=== PATIENT | male | born 1955 | race Caucasian/White ===

== ENCOUNTER → 2017-09-03 13:38 | Outpatient (CLI) | payer OTHER, SELFPAY ==
--- NOTE | 2017-09-09 08:28 | LEAS ---
Arterial Study - Arterial Study Arterial Study: Record number: [id number] next Date of scan 09/03/[address] Partida History: Patient with known atherosclerosis with claudication and a history of hyperlipidemia and smoking Interpretation: Right lower extremity there is fairly adequate pulsatile flow noted from the thigh down to the calf ankle out through the digits slightly decreased at the low thigh pressure 0.81 out to the posterior tibial 0.75 dorsalis pedis 0.56. Walked on the treadmill for 1.4 mph 5% grade for 5 minutes with no complaints this did drop down at 1 minute from 0.75 down to 0.51 x 3 minutes back up to normal and maintained from there. Shows biphasic flow both vessels at the ankle Left lower extremity adequate pulsatile flow from the thigh down to the calf ankle out through the digits duplex shows biphasic flow both vessels at the ankle. Low thigh with a pressure 0.89 maintained down through posterior tibial 0.93 dorsalis pedis 0.92. After exercising as above 1 minute dropped down to 0.673 minutes back to 0.775 minutes 0.88 maintained through there. Impression: 1. Moderate arterial occlusive disease of the right leg with an GENO 0.75 and biphasic flow. Moderate drop down to 0.51 without significant symptoms. Suggestive of either her aorta ilio or femoral occlusive disease. 2. Left lower extremity mild arterial occlusive disease with biphasic flow noted at the ankle with an GENO 0.93 with a drop down to 0.7 with exercise. Further evaluation is clinically warranted.
== END ==
PROVIDERS: Family Provider Family Medicine; PCP Family Medicine; Visit Provider Surgery Vascular Surgery
DX: I70.213 Atherosclerosis of native arteries of extremities with intermittent claudication, bilateral legs (principal); F17.200 Nicotine dependence, unspecified, uncomplicated
CPT/HCPCS: 93923

== ENCOUNTER → 2017-09-26 07:25 | Outpatient (CLI) | payer OTHER, SELFPAY ==
--- NOTE | 2017-09-26 07:25 | DT_ITS ---
This patient was seen during an EMR downtime September 21, 2017 - September 28, 2017. This patient may have a combination of paper and electronic documentation or all paper documentation. All documentation is viewable within the e-chart portion of [email or web address] for each patient visit.
[2017-09-26 10:22] LABS: AST(SGOT) 21 U/L (15-37); Alanine Aminotransfer ALT/SGPT 22 U/L (16-61); Albumin, Serum 3.6 g/dL (3.2-5.0); Alkaline Phosphatase 84 U/L (45-117); Bilirubin, Direct 0.06 mg/dL (0.00-0.30); Cholesterol 156 mg/dL (200); Globulin 3.7 g/dL (2.2-4.2); High Density Lipoprotein 33 mg/dL; Protein, Total 7.3 g/dL (6.4-8.2); Triglycerides 133 mg/dL; Very Low Density Lipoprotein 27 mg/dL (5-40)
== END ==
PROVIDERS: Family Provider Family Medicine; PCP Family Medicine; Visit Provider Internal Medicine Cardiovascular Disease
DX: E78.5 Hyperlipidemia, unspecified (principal); Z79.899 Other long term (current) drug therapy
CPT/HCPCS: 36415; 80061; 80076

== ENCOUNTER 2018-06-06 09:40 | Emergency (ER) | payer OTHER, SELFPAY ==
[2018-06-06 09:40] VITALS: BP 141/68; PULSE 67; RESP 18; TEMP 36.6; O2SAT 99; BMI 22.8
--- NOTE | 2018-06-06 10:04 | ED.VISSUMM ---
- ER Visit Summary Date of Service: 06/06/18 Chief Complaint: Left eye pain History of Present Illness: The patient is a 62 M who presents with left eye pain that began yesterday. Patient states the pain kind of went away yesterday but became worse today. Patient states the pain is worse with any blinking. Patient states he feels like there is something under his upper eyelid. Patient admits to some watery drainage and discharge. Patient denies any matting or crusting. Patient admits to some blurred vision from the left eye. Patient is unsure if there is any foreign body in the eye. Physical Examination: Vital signs are stable. Patient is afebrile. Patient is in no acute distress. Pupils are equal, round, and reactive to light bilaterally. Extraocular muscles are intact. Funduscopic examination is benign. There is conjunctival injection on the left. Tetracaine and fluorescein dye was applied. There are no foreign bodies noted. There is a large corneal abrasion over the central and inferior cornea. There is no hyphema noted. Anterior chamber is clear. There is no cell or flare. The remaining physical exam is within normal limits. Emergency Department Course and Treatment: Patient was given a prescription for gentamicin ophthalmic ointment. Patient was instructed to follow-up with his primary care physician or sap pi developer in 1-2 days. Patient understood and was agreeable with the plan. All questions were answered. Disposition: Discharge home Impression: Left corneal abrasion This note was generated with [employer] dictation software. It may contain incorrect words, spelling, and punctuation that were not noted in review of the chart prior to signing ED Disposition - Plan for ED Patient: Disposition: Home or Assisted Living Diagnosis: Left corneal abrasion Instructions: ED Eye Injury Corneal Abrasion Prescriptions: Gentamicin Ophthalmic Ointment [Garamycin Ophthalmic Ointment] 1 applic LEFT EYE BID 3 Days #1 opth.tube Referrals: Santos Martinez MD [Primary Care Provider] -
[2018-06-06] MEDS: Fluorescein 1 MG STRIP 1 STRIP LEFT EYE (10:44)
[2018-06-06] MEDS: Tetracaine 0.5% Ophthalmic Bottle 1 DRP LEFT EYE (10:45)
--- NOTE | 2018-06-06 11:15 | ED.RN ---
PT UNABLE TO DO VISUAL ACUITY TEST. DID NOT BRING GLASSES WITH HIM AND PER PT, HE CAN'T SEE ANYTHING WITHOUT THEM
== END 2018-06-06 11:37 | disposition home or self-care (01) ==
PROVIDERS: Emergency Provider Emergency Medicine; Family Provider Family Medicine; PCP Family Medicine
DX: S05.02XA Injury of conjunctiva and corneal abrasion without foreign body, left eye, initial encounter (principal); Z72.0 Tobacco use; X58.XXXA Exposure to other specified factors, initial encounter; Y93.89 Activity, other specified; Y92.89 Other specified places as the place of occurrence of the external cause; Y99.8 Other external cause status
CPT/HCPCS: 99283

== ENCOUNTER → 2018-09-24 | Outpatient (CLI) | payer OTHER, SELFPAY ==
[2018-09-24 07:52] LABS: AST(SGOT) 17 U/L (15-37); Alanine Aminotransfer ALT/SGPT 21 U/L (16-61); Albumin, Serum 3.8 g/dL (3.2-5.0); Alkaline Phosphatase 103 U/L (45-117); Bilirubin, Direct 0.09 mg/dL (0.00-0.30); Cholesterol 168 mg/dL (200); Globulin 3.9 g/dL (2.2-4.2); High Density Lipoprotein 34 mg/dL; Protein, Total 7.7 g/dL (6.4-8.2); Triglycerides 156 mg/dL; Very Low Density Lipoprotein 31 mg/dL (5-40)
== END | disposition home or self-care (01) ==
LOC: LAB 07:06
PROVIDERS: Family Provider Family Medicine; PCP Family Medicine; Referring Provider Internal Medicine Cardiovascular Disease; Visit Provider Internal Medicine Cardiovascular Disease
DX: E78.5 Hyperlipidemia, unspecified (principal)
CPT/HCPCS: 36415; 80061; 80076

== ENCOUNTER → 2018-10-05 | Outpatient (CLI) | payer OTHER, SELFPAY ==
[2018-09-30 13:57] VITALS: BMI 22.3
--- NOTE | 2018-10-05 07:47 | ART_ITS ---
Reason For Study: Atheroslcerosis Procedure A bilateral lower extremity continuous wave Doppler with analog waveform analysis and ankle brachial indexes. Left Segmental Pressures Left brachial= 135mmHg. Left posterior tibial artery = 111mmHg. Left dorsalis pedis artery = 85mmHg. The left dorsalis pedis waveforms are biphasic. The left posterior tibial artery waveforms are biphasic. Right Segmental Pressures Right brachial= 134mmHg. Right posterior tibial artery = 92mmHg. Right dorsalis pedis artery = 83mmHg. The right dorsalis pedis waveforms are monophasic. The right posterior tibial artery waveforms are biphasic. Indices The right ankle brachial index by the dorsalis pedis is 0.61. The right ankle brachial index by the posterior tibial artery is 0.68. The left ankle brachial index by the dorsalis pedis is 0.63. The left ankle brachial index by the posterior tibial artery is 0.82. Interpretation Summary 1. Bilateral with moderate occlussive disease and biphasic flow with GENO 0.68 on the right and 0.82 on the left. Ordering Physician: Judd Partida Referring Physician: Santos Martinez Performed By: Hetal Del Real RVT
--- NOTE | 2018-10-05 07:47 | AAVD_ITS ---
Reason For Study: Atheroslcerosis Aorta Measurements Aorta Doppler Measurements Proximal aorta measures1.37 x1.36cm. in cross- Peak systolic flow velocities within the proximal sectional axis. aorta measure 86.4 cm/sec. Proximal aorta measures1.36cm. in longitudinal Peak systolic flow velocities within the mid aorta axis. measure 36.3 cm/sec. Mid aorta measures1.33 x 1.33cm. in cross- Peak systolic flow velocities within the distal sectional axis. aorta measure 26.7 cm/sec. Mid aorta measures1.39cm. in longitudinal axis. Distal aorta measures1.74 x 2.05cm. in cross- sectional axis. Distal aorta measures1.62cm. in longitudinal axis. Left Iliac Artery Left iliac artery measures 0.64 x 0.66 cm. in the cross-sectional axis. Left iliac artery measures 0.65 cm. in the longitudinal axis. Peak systolic velocity in the left iliac artery measures 51.2 cm/sec. Right Iliac Artery Right iliac artery measures 0.54 x 0.54 cm. in the cross-sectional axis. Right iliac artery measures 0.55 cm. in the longitudinal axis. Peak systolic velocity in the right iliac artery measures 67.7 cm/sec. Procedure Aorta IVC Iliac vasculature or bypass grafts [id number]. Exam performed in department. Interpretation Summary 1. no aortoiliac aneurysm or stenosis. Ordering Physician: Judd Partida Referring Physician: Santos Martinez Performed By: Hetal Del Real RVT
== END | disposition home or self-care (01) ==
LOC: CVS 07:46
PROVIDERS: Family Provider Family Medicine; PCP Family Medicine; Referring Provider Surgery Vascular Surgery; Visit Provider Surgery Vascular Surgery
DX: I70.213 Atherosclerosis of native arteries of extremities with intermittent claudication, bilateral legs (principal); I65.23 Occlusion and stenosis of bilateral carotid arteries; F17.200 Nicotine dependence, unspecified, uncomplicated; R09.89 Other specified symptoms and signs involving the circulatory and respiratory systems; I25.10 Atherosclerotic heart disease of native coronary artery without angina pectoris; I25.2 Old myocardial infarction
CPT/HCPCS: 93922; 93978

== ENCOUNTER → 2019-09-24 | Outpatient (CLI) | payer OTHER, SELFPAY ==
[2018-09-30 13:57] VITALS: BMI 22.3
[2019-09-24 08:17] LABS: AST(SGOT) 19 U/L (15-37); Alanine Aminotransfer ALT/SGPT 21 U/L (16-61); Albumin, Serum 3.6 g/dL (3.2-5.0); Alkaline Phosphatase 89 U/L (45-117); Cholesterol 150 mg/dL (200); Globulin 3.6 g/dL (2.2-4.2); High Density Lipoprotein 35 mg/dL; Protein, Total 7.2 g/dL (6.4-8.2); Triglycerides 76 mg/dL; Very Low Density Lipoprotein 15 mg/dL (5-40)
== END | disposition home or self-care (01) ==
PROVIDERS: PCP Family Medicine; Referring Provider Internal Medicine Cardiovascular Disease; Visit Provider Internal Medicine Cardiovascular Disease
DX: E78.5 Hyperlipidemia, unspecified (principal)
CPT/HCPCS: 36415; 80061; 80076

== ENCOUNTER → 2019-11-08 | Outpatient (CLI) | payer OTHER, SELFPAY ==
[2019-09-30 14:14] VITALS: BMI 22.1
--- NOTE | 2019-11-08 07:57 | ART_ITS ---
Reason For Study: Atherosclerosis Procedure A bilateral lower extremity continuous wave Doppler with analog waveform analysis and ankle brachial indexes. Left Segmental Pressures Left brachial= 135mmHg. Left posterior tibial artery = 126mmHg. Left dorsalis pedis artery = 107mmHg. The left dorsalis pedis waveforms are biphasic. The left posterior tibial artery waveforms are biphasic. Right Segmental Pressures Right brachial= 130mmHg. Right posterior tibial artery = 110mmHg. Right dorsalis pedis artery = 83mmHg. The right dorsalis pedis waveforms are biphasic. The right posterior tibial artery waveforms are biphasic. Indices The right ankle brachial index by the dorsalis pedis is 0.81. The right ankle brachial index by the posterior tibial artery is 0.61. The left ankle brachial index by the dorsalis pedis is 0.93. The left ankle brachial index by the posterior tibial artery is 0.79. Interpretation Summary Right leg biphasic and karen 0.81. Left leg triphasic and karen 0.93. Ordering Physician: Judd Partida Referring Physician: Santos Martinez Performed By: Hetal Del Real RVT and Student
--- NOTE | 2019-11-08 07:58 | AAVD_ITS ---
Reason For Study: Atherosclerosis Aorta Measurements Aorta Doppler Measurements Proximal aorta measures1.37 x 1.35cm. in cross- Peak systolic flow velocities within the proximal sectional axis. aorta measure 36 cm/sec. Proximal aorta measures1.35cm. in longitudinal Peak systolic flow velocities within the mid aorta axis. measure 34.6 cm/sec. Mid aorta measures1.72 x 1.79cm. in cross- Peak systolic flow velocities within the distal sectional axis. aorta measure 52 cm/sec. Mid aorta measures1.79cm. in longitudinal axis. Distal aorta measures1.00 x 1.01cm. in cross- sectional axis. Distal aorta measures1.04cm. in longitudinal axis. Left Iliac Artery Left iliac artery measures 0.56 x 0.54 cm. in the cross-sectional axis. Left iliac artery measures 0.57 cm. in the longitudinal axis. Peak systolic velocity in the left iliac artery measures 75.7 cm/sec. Right Iliac Artery Right iliac artery measures 0.63 x 0.61 cm. in the cross-sectional axis. Right iliac artery measures 0.62 cm. in the longitudinal axis. Peak systolic velocity in the right iliac artery measures 91.6 cm/sec. Procedure Aorta IVC Iliac vasculature or bypass grafts [id number]. Exam performed in department. Interpretation Summary No aortoiliac aneurysm or stenosis. Ordering Physician: Judd Partida Referring Physician: Santos Martinez Performed By: Hetal Del Real RVT
== END | disposition home or self-care (01) ==
PROVIDERS: PCP Family Medicine; Referring Provider Surgery Vascular Surgery; Visit Provider Surgery Vascular Surgery
DX: I70.213 Atherosclerosis of native arteries of extremities with intermittent claudication, bilateral legs (principal); F17.200 Nicotine dependence, unspecified, uncomplicated
CPT/HCPCS: 93922; 93978

== ENCOUNTER → 2020-07-10 06:54 | Outpatient (CLI) | payer OTHER, SELFPAY ==
[2020-06-29 13:18] VITALS: BMI 22.4
--- NOTE | 2020-07-10 17:05 | STRESSREP ---
Stress Test Report Exercise myocardial perfusion stress test. 65-year-old man with a history of coronary artery disease status post previous inferior infarct. Medications aspirin fish oil metoprolol Plavix. Stress protocol: Resting EKG demonstrates normal sinus rhythm with a rate of 68 bpm normal intervals are noted resting blood pressure is 140/78 mmHg. Occasional premature ventricular complexes noted. The patient exercised according to regular Gildardo protocol for total duration of 5 minutes and 45 seconds. Patient completed 2 minutes and 45 seconds into stage II of the Gildardo protocol the maximum heart rate attained was 137 bpm which was 88% of max impacted heart rate the maximum workload was 7 metabolic equivalents. At rest there were no ST or T wave changes noted to suggest ischemia and at peak exercise no ST or T wave changes were noted to suggest ischemia. No clinical angina was noted the test was terminated due to leg discomfort. The peak blood pressure was 168/70 mmHg. The rate-pressure product was 21,700. Myocardial perfusion protocol. 11.3 mCi of technetium 99m sestamibi was injected at rest. The patient exercised according to the regular Gildardo protocol for 5 minutes and 45 seconds and at peak exercise 35.0 mCi of technetium 99m sestamibi was injected stress images were obtained stress and rest images were reconstructed and compared in the short axis vertical long and horizontal long axis. Gated images were also obtained. Perfusion SPECT analysis: Review of the stress images demonstrate a mildly dilated cardiac silhouette. The septum and anterior wall appear to be well perfused. There is a large defect involving the mid inferior wall extending to the base and the inferolateral segment. The resting images demonstrate minimal improvement suggestive of mild naomi-infarct ischemia. The rest of the royal appear to be normally perfused. A previous infarct is noted as above. Gated SPECT analysis: The gated ejection fraction demonstrates reduced ejection fraction of 39% with severely hypokinetic inferior and inferolateral wall. Conclusion: Exercise myocardial perfusion stress test demonstrating evidence of previous inferior and inferolateral infarct. Minimal naomi-infarct ischemia noted. Good functional aerobic capacity. Ischemic cardiomyopathy present.
== END ==
PROVIDERS: PCP Family Medicine; Visit Provider Nurse Practitioner Family
DX: I25.10 Atherosclerotic heart disease of native coronary artery without angina pectoris (principal); R06.02 Shortness of breath; I73.9 Peripheral vascular disease, unspecified; E78.00 Pure hypercholesterolemia, unspecified; Z95.5 Presence of coronary angioplasty implant and graft
CPT/HCPCS: 78452; 93017; A9500; A4216

== ENCOUNTER → 2020-10-11 06:58 | Outpatient (CLI) | payer OTHER, SELFPAY ==
[2020-06-29 13:18] VITALS: BMI 22.4
[2020-10-11 07:47] LABS: AST(SGOT) 20 U/L (15-37); Alanine Aminotransfer ALT/SGPT 22 U/L (16-61); Albumin, Serum 3.7 g/dL (3.2-5.0); Alkaline Phosphatase 111 U/L (45-117); Bilirubin, Direct 0.11 mg/dL (0.00-0.30); Cholesterol 184 mg/dL (200); Globulin 3.7 g/dL (2.2-4.2); High Density Lipoprotein 36 mg/dL; Protein, Total 7.4 g/dL (6.4-8.2); Triglycerides 125 mg/dL; Very Low Density Lipoprotein 25 mg/dL (5-40)
== END ==
PROVIDERS: PCP Family Medicine; Referring Provider Internal Medicine Cardiovascular Disease; Visit Provider Internal Medicine Cardiovascular Disease
DX: E78.00 Pure hypercholesterolemia, unspecified (principal); E78.5 Hyperlipidemia, unspecified
CPT/HCPCS: 36415; 80061; 80076

== ENCOUNTER 2020-11-29 08:24 | Day surgery (SDC) | payer OTHER, SELFPAY ==
[2020-10-29 13:15] VITALS: BMI 23.1
--- NOTE | 2020-11-28 10:11 | EKG12_ITS ---
Test Reason : PRE OP Blood Pressure : / mmHG Vent. Rate : 064 BPM Atrial Rate : 064 BPM P-R Int : 160 ms QRS Dur : 102 ms QT Int : 418 ms P-R-T Axes : 071 068 054 degrees QTc Int : 431 ms Normal sinus rhythm Normal ECG Confirmed by PHOENIX DAILEY, PHILLY ([id number]), movie editor KERRY WEBBER ([id number]) on 11/29/2020 10:42:25 AM Referred By: Cedrick Singh Confirmed By:PHILLY GARIBAY MD
[2020-11-28 11:25] LABS: Hematocrit 46.7 % (40-54); Hemoglobin 15.8 g/dL (13.0-16.5); Mean Corp Hgb Conc 33.8 g/dL (32-36); Mean Corpuscular Hgb 30.7 pg (27.0-32.0); Mean Corpuscular Volume 90.7 fL (80-94); Mean Platelet Vol. 9.9 fl (6.2-12.0); Platelet Count 299 K/mm3 (150-450); RBC Distribution Width CV 13.2 % (11.6-14.6); RBC Distribution Width SD 44.1 fl (35.1-43.9); Red Blood Count 5.15 M/mm3 (4.6-6.2); White Blood Count 10.2 K/mm3 (4.4-11.0)
[2020-11-28 12:05] LABS: Anion Gap 4 (5-15); BUN 12 mg/dL (7-18); Calcium,Total 9.1 mg/dL (8.5-10.1); Chloride 107 mmol/L (98-107); Creatinine, Serum 0.92 mg/dL (0.70-1.30); EST Glomerular Filtration Rate 87 mL/min (>60); Est Glom Filt Rate - Afr Amer 106 mL/min (>60); Estimated Creatinine Clearance 76.41 ml/min; Glucose 73 mg/dL (74-106); Potassium 3.8 mmol/L (3.5-5.1); Sodium Level 138 mmol/L (136-145)
[2020-11-29] VITALS (9 sets, daily range): BP systolic 102–161; BP diastolic 51–73; PULSE 49–58; RESP 16; TEMP 36.1–36.7; O2SAT 96–99; BMI 21.6
[2020-11-29] MEDS: Lactated Ringers 1,000 ML 100 ML IV (09:05)
--- NOTE | 2020-11-29 09:19 | PCM.HP.BLA ---
History and Physical Date of Admission: 11/29/20 Intake Vital Signs 10/29/20 13:05 10/29/20 13:15 Height 5 ft 8.5 in Weight: 154 lb BMI 22.4 23.1 BP 146/72 H Blood Pressure Location Rt brachial Position Sitting Respiration 18 Intake Visit Reasons: Right Inguinal Hernia seen 2017 Chief Complaint: [facility] Bag Liner Required: No Is patient in pain?: Yes (right groin) Allergies atorvastatin [From Lipitor] Adverse Reaction (Severe, Verified 10/29/20 13:17) mylagias pravastatin [From Pravachol] Adverse Reaction (Severe, Verified 10/29/20 13:17) mylagias Medications aspirin 81 mg tablet,delayed release 81 mg PO QDAY 04/07/17 [History Confirmed 10/29/20] cilostazol 100 mg tablet 100 mg PO BID #180 tab 09/29/17 [Rx Confirmed 10/29/20] diazepam 5 mg tablet 5 mg PO BID-TID PRN 11/17/17 [History Confirmed 10/29/20] omega 0-qql-did-fish oil 1,000 mg (120 mg-180 mg) capsule cap PO 11/17/17 [History Confirmed 10/29/20] erythromycin 1 applic LEFT EYE TID #1 tube 06/06/18 [Rx Confirmed 10/29/20] cetirizine 10 mg tablet 10 mg PO DAILY 09/30/18 [History Confirmed 10/29/20] multivitamin 1 tab PO DAILY 09/30/18 [History Confirmed 10/29/20] clopidogrel 75 mg tablet 75 mg PO DAILY 90 Days #90 tab 09/30/19 [Rx Confirmed 10/29/20] psyllium husk 0.4 gram capsule 1.2 g PO DAILY cap 09/30/19 [History Confirmed 10/29/20] metoprolol succinate 25 mg tablet,extended release 24 hr 25 mg PO QDAY #90 tab 09/24/20 [Rx Confirmed 10/29/20] [facility] Medical History (Updated 10/29/20 @ 14:[address] Cedrick Singh MD) Atherosclerosis of coronary artery of [place] heart without angina pectoris Atherosclerosis of coronary artery without angina pectoris Carotid artery disease Hepatitis A Hyperlipidemia 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 infarction PVD (peripheral vascular disease) with claudication Surgical History H/O shoulder surgery History of appendectomy History of coronary artery stent placement (05/14/06) History of nasal polypectomy Social History Smoking Status: Current every day smoker alcohol intake: current substance use type: does not use caffeine: Yes Type: carbonated beverages Number of servings: 2 what type of physical activity do you participate in: none HPI HPI HPI: LASHANDA DEL CASTILLO, is a 65 M who presents to the office today for right inguinal hernia. The patient notes that he has been having right inguinal hernia for at least 3 years. Patient reports that the bulging is getting worse and he is unable to push it back at this point. He does not note any nausea or vomiting. The pain is only in the right groin there is no pain in the left groin. There is no radiation of pain. ROS General General: No weight change, appetite, fatigue, colon cancer, breast cancer or weakness HEENT HEENT: Yes eye injury and eye surgery; No difficulty swallowing, swollen glands or hoarseness Endo Endocrine: No thyroid disease, diabetes mellitus, thyroid cancer, Hair loss, heat intolerance or cold intolerance Skin Skin: Yes changing moles; No rash Breast Breast: No left breast lump, right breast lump, nipple discharge, breast pain, abnormal mammogram, abnormal US or breast enlargement Musc Musculoskeletal: Yes back problems; No arthritis, rheumatoid arthritis, gout or joint pain Cardio Cardiovascular: Yes heart disease, heart attack and heart stent; No murmur, pacemaker, atrial fibrillation, high blood pressure, palpitations, shortness of breat with exertion or chest pain Psych Psychiatric: Yes anxiety; No depression or hearing voices Resp Respiratory: No shortness of breath, No sleep apnea, Yes cough, No COPD, No asthma, No emphysema and No wheezing Gastro Gastrointestinal: No abdominal pain, No nausea or vomiting, No diarrhea, No constipation, No blood in stool, No acid reflux, Yes hemorrhoids, No ulcers, No gallbladder problem and No black,tarry stools José Miguel Hematologic: Yes blood thinners, No blood disorders, No bleeding, No anemia and No blood clots Neuro Neurologic: No system reviewed and no additional complaints, except as documented, No as per HPI, No abnormal gait, No abnormal hearing, No abnormal movements, No abnormal speech, No behavioral changes, No burning sensations, No confusion, No convulsions, No disequilibrium, No dizziness, No localized weakness, No frequent falls, No headache(s), No lack of coordination, No loss of vision, No memory loss, No numbness, No other visual disturbances, No radicular pain, No restless legs, No sensory deficit, No syncope, No tingling, No tremor(s), No weakness and No other Exam Const General: cooperative Orientation: alert and oriented x3 [facility] Head: normal to inspection Neck Neck: normal visual inspection and full ROM Chest Chest palpation & inspection: normal inspection of the chest Resp Effort & Inspection: normal respiratory effort Auscultation: clear to auscultation bilaterally Cardio Rate: regular rate Rhythm: regular rhythm GI Inspection: non-distended Palpation: soft, hernia indirect inguinal on the right and nontender Skin General: no rashes or lesions noted Neuro General: patient alert and patient oriented x3 Extrem General: full ROM Psych Appearance: grossly normal Mental Status: mental status grossly normal Assessment and Plan Assessment and Plan (1) Right inguinal hernia: Status: Acute Plan - Dr. Cedrick Singh MD: The patient has a right inguinal hernia. The patient says that it is interfering with his daily life and causing pain especially with lifting and he would like it repaired. I discussed laparoscopic robotic assisted right inguinal hernia repair with mesh. I discussed the risks including but not limited to bleeding, infection, injury to underlying organs such as the bowel, bladder, spermatic cord or ureter. Patient understands the risks and is willing to proceed. I will get clearance for surgery from Dr. Stone and clearance to stop his blood thinners for 5 days prior to surgery. Patient says he recently underwent a stress test which was normal. Cedrick Singh MD Pager: [facility] [address] [place] [address], [address] [place] [address] Office: I have re-examined the patient. There are no clinical changes since date of exam.
[2020-11-29] MEDS: Ipratropium/Albuterol Sulfate 3 ML AMPUL.NEB INHALATION (09:21)
[2020-11-29] MEDS: Cefazolin 2 GM in 0.9% Normal Saline 100 ML IV (09:41)
[2020-11-29] MEDS: Bupivacaine Mpf 0.5% 30 ML VIAL (10:35)
--- NOTE | 2020-11-29 10:54 | EX.PCM.DISCH ---
Discharge Instructions Procedure Hernia Diet Discharge Diet: Light diet - advance as tolerated Activity Discharge Activity: May Not Drive (for 2-3 days or while taking narcotic pain meds.) and May Shower (with the bandage in place 1-2 days after surgery.) Lifting Restrictions: 20 pounds for 4 weeks. Additional Activity Instructions:: Climbing stairs is fine, walking is encouraged. Sitting in bed may be uncomfortable. Sitting up using your lateral muscles (sitting up sideways) is usually more comfortable. Do not drive, work heavy equipment of sign legal documents for 24 hours. If your hernia repair was an ingunial repair, you may have scrotal swelling, an ice pack and/or athletic support can provide more comfort. Pain medications may cause nausea, you should typically eat light foods as you take your pain medications. Pain medications may also cause constipation. If you have difficulty with this, discuss with your doctor. Dressing / Incision Call your doctor if your incision/area has: Continuous Slow Oozing, Sudden Increased Bleeding, Increased Pain/ Swelling, Increased Redness and Foul Smelling Discharge Call your doctor if you observe: Fever of 101 or Higher Suture Line Care: Avoid Pulling/Pushing and Avoid Pinching/Bending Cleanse incision/area with: Soap & Water Follow Up Care Please Follow Up With: Cedrick Singh MD When: Please call to schedule 2 week follow up appointment. [phone] Test Results: Test results from this visit will be discussed in further detail at your follow-up appointment, if applicable. Discharge Plan Admission Attending Provider: Cedrick Singh Primary Care Provider: Santos Martinez Instructions Additional Instructions / Restrictions: Resume your blood thinners tomorrow. Discharge Orders/Prescriptions Prescriptions: New oxycodone-acetaminophen [Percocet] 5-325 mg tablet 1 tab PO Q4H PRN (Reason: pain) 5 Days Qty: 10 RF: 0 No Action aspirin [Adult Aspirin Regimen] 81 mg tablet,delayed release (DR/EC) 81 mg PO QDAY RF: 0 cilostazol 100 mg tablet 100 mg PO BID Qty: 180 RF: 3 multivitamin tablet 1 tab PO DAILY RF: 0 cetirizine [Zyrtec] 10 mg tablet 10 mg PO DAILY RF: 0 diazepam [Valium] 5 mg tablet 5 mg PO BID-TID PRN (Reason: Anxiety) RF: 0 omega 6-dcw-ulh-fish oil [Fish Oil] 1,000 mg (120 mg-180 mg) capsule 1 cap PO DAILY RF: 0 psyllium husk [Daily Fiber] 0.4 gram capsule 1.2 g PO DAILY RF: 0 clopidogrel 75 mg tablet 75 mg PO DAILY 90 Days Qty: 90 RF: 4 nitroglycerin 3 mg Tablet Extended Release 4 mg BUCCAL PRN PRN (Reason: Chest Pain) RF: 0 metoprolol succinate 25 mg tablet extended release 24 hr 25 mg PO QDAY Qty: 90 RF: 3 Referrals / Follow Up: Santos Martinez MD [Primary Care Provider] - Disposition Disposition (needs filled in before D/C Order can be placed): Home, Self Care
--- NOTE | 2020-11-29 10:59 | OP.PCM_ITS ---
Problems Associated Problem List Diagnoses (1) Right inguinal hernia: Report of Operation Date of Procedure: 11/29/20 Pre-Operative Diagnosis: Right inguinal hernia Post-Operative Diagnosis: Same Surgery/Procedure Performed:: Robotic assisted laparoscopic right inguinal hernia repair with mesh Description of Procedure: Patient was brought back to the operating room and general anesthesia was used. Abdomen was prepped and draped in usual sterile fashion. Midline incision was made superior the umbilicus and the fascia was elevated and a Veress needle was placed into the abdomen and a drop test was performed. The abdomen was insufflated to 15 mmHg and the needle was removed. Camera port was placed into the abdomen. The camera was placed into the abdomen and it was inspected and there were no injuries from entry. Patient was placed in Trendelenburg position and had a right inguinal hernia. Normal left groin. Under direct visualization a right lower quadrant and left lower quadrant 8 mm port were placed and the robot was docked. The adhesions from his prior appendectomy were taken down with electrocautery scissors. Next an incision in the right lower quadrant peritoneum was performed using electrocautery scissors and dissection was carried inferiorly until the hernia sac was dissected free circumferentially and reduced. Once there was adequate space a ProGrip mesh was unfolded in the right groin and placed over the hernia defect. The peritoneum was then reapproximated using a running 3-0V lock suture. The peritoneum completely cover the mesh at the end of the procedure. The robot was undocked and the air was locked desufflate from the abdomen and the ports were removed. The skin incisions were injected with local anesthetic and closed with interr upted 4-0 Monocryl sutures. Steri-Strips and bandages were applied. Scrotum was checked at the end of procedure and contain both testicles. patient was taken to PACU in stable condition. Grafts/Implants Used: ProGrip mesh Admit VTE Documentation VTE Mechan Device Prophylaxis: SCD's
--- NOTE | 2020-11-29 11:02 | EKG12_ITS ---
Test Reason : POST OP Blood Pressure : / mmHG Vent. Rate : 054 BPM Atrial Rate : 054 BPM P-R Int : 168 ms QRS Dur : 106 ms QT Int : 470 ms P-R-T Axes : 076 057 064 degrees QTc Int : 445 ms Sinus bradycardia Low voltage QRS Confirmed by PHOENIX DAILEY, PHILLY ([id number]), photo editor KERRY WEBBER ([id number]) on 12/05/2020 11:05:26 AM Referred By: Cedrick Singh Confirmed By:PHILLY GARIBAY MD
[2020-11-29 12:18] LABS: Troponin-I HS 5.9 pg/mL (3.0-78.5)
[2020-11-29 15:56] LABS: Troponin-I HS 7.1 pg/mL (3.0-78.5)
== END 2020-11-29 16:16 | disposition home or self-care (01) ==
LOC: SDC 08:24 → AC 08:25
PROVIDERS: Anesthesiology; PCP Family Medicine; Referring Provider Surgery; Visit Provider Surgery
PROC: (CPT 49650; principal; 2020-11-29 09:45)
DX: K40.90 Unilateral inguinal hernia, without obstruction or gangrene, not specified as recurrent (principal); I25.10 Atherosclerotic heart disease of native coronary artery without angina pectoris; E78.5 Hyperlipidemia, unspecified; I73.9 Peripheral vascular disease, unspecified; F17.200 Nicotine dependence, unspecified, uncomplicated; J44.9 Chronic obstructive pulmonary disease, unspecified; I10 Essential (primary) hypertension; I25.2 Old myocardial infarction; Z79.899 Other long term (current) drug therapy; Z95.5 Presence of coronary angioplasty implant and graft
CPT/HCPCS: 00840; 49650; 36415; 80048; 84484; 85027; 93005; J7120; J2405

== ENCOUNTER → 2021-04-10 08:37 | Outpatient (CLI) | payer OTHER, SELFPAY ==
--- NOTE | 2021-04-10 08:42 | AAVD_ITS ---
Reason For Study: Atherosclerosis Aorta Measurements Aorta Doppler Measurements Proximal aorta measures1.45 x 1.40cm. in cross- Peak systolic flow velocities within the proximal sectional axis. aorta measure 67.7 cm/sec. Proximal aorta measures1.42cm. in longitudinal Peak systolic flow velocities within the mid aorta axis. measure 31.9 cm/sec. Mid aorta measures1.33 x 1.30cm. in cross- Peak systolic flow velocities within the distal sectional axis. aorta measure 22.3 cm/sec. Mid aorta measures1.31cm. in longitudinal axis. Distal aorta measures1.54 x 1.54cm. in cross- sectional axis. Distal aorta measures1.55cm. in longitudinal axis. Left Iliac Artery Left iliac artery measures 0.56 x 0.54 cm. in the cross-sectional axis. Left iliac artery measures 0.55 cm. in the longitudinal axis. Peak systolic velocity in the left iliac artery measures 86.9 cm/sec. Right Iliac Artery Right iliac artery measures 0.54 x 0.54 cm. in the cross-sectional axis. Right iliac artery measures 0.56 cm. in the longitudinal axis. Peak systolic velocity in the right iliac artery measures 114.3 cm/sec. Procedure Aorta IVC Iliac vasculature or bypass grafts [id number]. Exam performed in department. VL/Abd Aortic/IVC Duplex scan Interpretation Summary No evidence of aortic iliac aneurysm or stenosis. Ordering Physician: Judd Partida Referring Physician: Santos Martinez Performed By: Hetal Del Real RVT
--- NOTE | 2021-04-10 08:42 | ART_ITS ---
Reason For Study: Atherosclerosis Procedure A bilateral lower extremity continuous wave Doppler with analog waveform analysis and ankle brachial indexes. Left Segmental Pressures Left brachial= 132mmHg. Left posterior tibial artery = 116mmHg. Left dorsalis pedis artery = 109mmHg. The left dorsalis pedis waveforms are biphasic. The left posterior tibial artery waveforms are biphasic. Right Segmental Pressures Right brachial= 129mmHg. Right posterior tibial artery = 109mmHg. Right dorsalis pedis artery = 101mmHg. The right dorsalis pedis waveforms are biphasic. The right posterior tibial artery waveforms are biphasic. Indices The right ankle brachial index by the dorsalis pedis is 0.77. The right ankle brachial index by the posterior tibial artery is 0.83. The left ankle brachial index by the dorsalis pedis is 0.83. The left ankle brachial index by the posterior tibial artery is 0.88. VL/Ankle Brachial Index Interpretation Summary Bilateral mild occlusive disease with an ABIs 0.83 and 0.88. Biphasic flow note d. Ordering Physician: Judd Partida Referring Physician: Santos Martinez Performed By: Hetal Del Real RVT
== END ==
PROVIDERS: PCP Family Medicine; Referring Provider Surgery Vascular Surgery; Visit Provider Surgery Vascular Surgery
DX: I70.213 Atherosclerosis of native arteries of extremities with intermittent claudication, bilateral legs (principal); F17.200 Nicotine dependence, unspecified, uncomplicated
CPT/HCPCS: 93922; 93978

== ENCOUNTER → 2021-12-06 | Outpatient (CLI) | payer OTHER, SELFPAY ==
[2021-12-06 07:25] LABS: AST(SGOT) 13 U/L (15-37); Alanine Aminotransfer ALT/SGPT 16 U/L (16-61); Albumin, Serum 3.6 g/dL (3.2-5.0); Alkaline Phosphatase 99 U/L (45-117); Bilirubin, Direct 0.06 mg/dL (0.00-0.30); Cholesterol 146 mg/dL (200); Globulin 3.9 g/dL (2.2-4.2); High Density Lipoprotein 38 mg/dL; Protein, Total 7.5 g/dL (6.4-8.2); Triglycerides 102 mg/dL; Very Low Density Lipoprotein 20 mg/dL (5-40)
== END | disposition home or self-care (01) ==
PROVIDERS: PCP Family Medicine; Referring Provider Nurse Practitioner Family; Visit Provider Nurse Practitioner Family
DX: E78.5 Hyperlipidemia, unspecified (principal)
CPT/HCPCS: 36415; 80061; 80076

== ENCOUNTER → 2021-12-09 | Outpatient (CLI) | payer OTHER, SELFPAY ==
[2021-12-09 18:18] LABS: PSA,Total - Annual Screen 2.05 ng/mL (0.00-4.00)
== END | disposition home or self-care (01) ==
LOC: MFPLAB 15:28
PROVIDERS: PCP Family Medicine; Visit Provider Family Medicine
DX: Z12.5 Encounter for screening for malignant neoplasm of prostate (principal)
CPT/HCPCS: 36415; 84153; G0103

== ENCOUNTER → 2021-12-12 | Outpatient (CLI) | payer OTHER, SELFPAY ==
--- NOTE | 2021-12-12 11:49 | RAD_ITS ---
STUDY: X-RAY CHEST REASON FOR EXAM: Male, 66 years old. Fever and cough TECHNIQUE: PA and lateral views of the chest. COMPARISON: None. FINDINGS: Lungs are mildly hyperexpanded without a superimposed acute pulmonary process. There is no demonstrated pleural abnormality. Normal size heart. Normal mediastinum and stefany. Normal visualized pulmonary arteries. Normal visualized aortic arch and descending thoracic aorta. Normal visualized thoracic spine. Normal visualized ribs, clavicles, and shoulders. There is no demonstrated abnormality of the visualized soft tissue structures of the upper abdomen. RAD/Chest PA and Lateral IMPRESSION: Mildly hyperexpanded lungs without a superimposed acute pulmonary process Electronically Signed: Sergey Velazquez MD at 9:35 EDT ,
== END | disposition home or self-care (01) ==
LOC: MTRAD 11:48
PROVIDERS: PCP Family Medicine; Referring Provider Family Medicine; Visit Provider Family Medicine
DX: J18.9 Pneumonia, unspecified organism (principal)
CPT/HCPCS: 71046

== ENCOUNTER → 2022-10-09 | Outpatient (CLI) | payer OTHER, SELFPAY ==
[2022-10-09 07:42] LABS: AST(SGOT) 16 U/L (15-37); Alanine Aminotransfer ALT/SGPT 18 U/L (16-61); Albumin, Serum 3.8 g/dL (3.2-5.0); Alkaline Phosphatase 106 U/L (45-117); Bilirubin, Direct 0.08 mg/dL (0.00-0.30); Cholesterol 167 mg/dL (200); Globulin 3.9 g/dL (2.2-4.2); High Density Lipoprotein 36 mg/dL; Protein, Total 7.7 g/dL (6.4-8.2); Triglycerides 146 mg/dL; Very Low Density Lipoprotein 29 mg/dL (5-40)
== END | disposition home or self-care (01) ==
LOC: LAB 06:59
PROVIDERS: PCP Family Medicine; Referring Provider Internal Medicine Cardiovascular Disease; Visit Provider Internal Medicine Cardiovascular Disease
DX: E78.00 Pure hypercholesterolemia, unspecified (principal)
CPT/HCPCS: 36415; 80061; 80076

== ENCOUNTER → 2023-02-10 | Outpatient (CLI) | payer OTHER, SELFPAY ==
--- NOTE | 2023-02-10 12:44 | CT_ITS ---
STUDY: LOW DOSE CT LUNG CANCER SCREENING REASON FOR EXAM: Male, 67 years old. 1 ppd smoker x 48 years. RADIATION DOSAGE (If Supplied By Facility): CTDIvol = ( 1.94 ) mGy, DLP = ( 72.32 ) mGycm TECHNIQUE: No contrast was administered. Low dose technique was utilized (average mAS-38 and kVp 120). 1.25 mm axial source images with a slice interval of 1.25-mm were reconstructed in lung windows. 2.5 mm axial source images with a slice interval of 2.5-mm were reconstructed in lung windows. 5.0 mm axial source images with a slice interval of 5.0-mm were reconstructed in soft tissue windows. COMPARISON: None. NODULES: Lung windows show underlying emphysema with a partially calcified 1cm calcified granuloma in the left lung base. No organized infiltrate, effusion, or suspicious noncalcified mass or nodule. Limited soft tissue windows show a normal-appearing thyroid gland. There are scattered subcentimeter in short axis dimension axillary, mediastinal, and perihilar lymph nodes. The thoracic aorta tapers normally. There are calcified coronary vessels. Bony structures show degenerative change. Limited cuts through the upper abdomen do not show a suspicious abnormality. CT/Low Dose CT Lung Screening IMPRESSION: Lung-RADS category 2 - Continue annual screening with LDCT in 12 months. IMPORTANT NOTES FOR USE: ACR Lung-RADS Version 1.1 Assessment Categories Release Date: 2018 Category: Coded 0-4 bases on nodule(s) with highest degree of suspicion. Negative screen is defined as categories 1 and 2; a positive screen is defined as categories 3 and 4. Category 3 and 4A nodules that are unchanged on interval CT should be coded as category 2, and individuals returned to screening in 12 months. Category 4X: Category 3 or 4 nodules with additional imaging findings that increase the suspicion of lung cancer, such as spiculation, GGN that doubles in size in 1 year, enlarged lymph notes, etc. Category Modifiers: S (significant finding unrelated to lung cancer) Electronically Signed: Sergey Velazquez MD at 15:24 EDT ,
== END | disposition home or self-care (01) ==
LOC: CT 12:44
PROVIDERS: PCP Family Medicine; Referring Provider Internal Medicine Pulmonary Disease; Visit Provider Internal Medicine Pulmonary Disease
DX: Z87.891 Personal history of nicotine dependence (principal)
CPT/HCPCS: 71271

== ENCOUNTER → 2023-04-21 | Outpatient (CLI) | payer OTHER, SELFPAY ==
--- NOTE | 2023-04-21 07:42 | ART_ITS ---
Reason For Study: Atherosclerosis Procedure A bilateral lower extremity continuous wave Doppler with analog waveform analysis and ankle brachial indexes. Left Segmental Pressures Left brachial= 145mmHg. Left posterior tibial artery = 130mmHg. Left dorsalis pedis artery = 117mmHg. The left dorsalis pedis waveforms are biphasic. The left posterior tibial artery waveforms are biphasic. Right Segmental Pressures Right brachial= 137mmHg. Right posterior tibial artery = 111mmHg. Right dorsalis pedis artery = 106mmHg. The right dorsalis pedis waveforms are biphasic. The right posterior tibial artery waveforms are biphasic. Indices The right ankle brachial index by the dorsalis pedis is 0.73. The right ankle brachial index by the posterior tibial artery is 0.77. The left ankle brachial index by the dorsalis pedis is 0.81. The left ankle brachial index by the posterior tibial artery is 0.90. VL/Ankle Brachial Index Interpretation Summary Right mild stenosis and left normal at rest. Ordering Physician: Judd Partida Referring Physician: Santos Martinez Performed By: Hetal Del Real RVT
--- NOTE | 2023-04-21 07:42 | AAVD_ITS ---
Reason For Study: Aherosclerosis Aorta Measurements Aorta Doppler Measurements Proximal aorta measures1.22 x 1.24cm. in cross- Peak systolic flow velocities within the proximal sectional axis. aorta measure 68.7 cm/sec. Proximal aorta measures1.25cm. in longitudinal Peak systolic flow velocities within the mid aorta axis. measure 45.3 cm/sec. Mid aorta measures1.63 x 1.60cm. in cross- Peak systolic flow velocities within the distal sectional axis. aorta measure 35.8 cm/sec. Mid aorta measures1.64cm. in longitudinal axis. Distal aorta measures1.03 x 1.05cm. in cross- sectional axis. Distal aorta measures1.05cm. in longitudinal axis. Left Iliac Artery Left iliac artery measures 0.61 x 0.61 cm. in the cross-sectional axis. Left iliac artery measures 0.66 cm. in the longitudinal axis. Peak systolic velocity in the left iliac artery measures 82.7 cm/sec. Right Iliac Artery Right iliac artery measures 0.73 x 0.71 cm. in the cross-sectional axis. Right iliac artery measures 0.66 cm. in the longitudinal axis. Peak systolic velocity in the right iliac artery measures 386.9 cm/sec. Procedure Aorta IVC Iliac vasculature or bypass grafts [id number]. Exam performed in department. VL/Abd Aortic/IVC Duplex scan Interpretation Summary Right common iliac severe stenosis. Ordering Physician: Judd Partida Referring Physician: Santos Martinez Performed By: Hetal Del Real RVT
== END | disposition home or self-care (01) ==
LOC: CVS 07:41
PROVIDERS: PCP Family Medicine; Referring Provider Surgery Vascular Surgery; Visit Provider Surgery Vascular Surgery
DX: I70.213 Atherosclerosis of native arteries of extremities with intermittent claudication, bilateral legs (principal); F17.200 Nicotine dependence, unspecified, uncomplicated
CPT/HCPCS: 93922; 93978

== ENCOUNTER → 2023-08-07 | Outpatient (CLI) | payer OTHER, SELFPAY ==
--- NOTE | 2023-08-07 14:56 | CT_ITS ---
EXAM: CT CHEST WITHOUT INTRAVENOUS CONTRAST CLINICAL INDICATION: Solitary pulmonary nodule TECHNIQUE: Helically acquired images were obtained of the chest without intravenous contrast. This CT exam was performed using one or more of the following dose reduction techniques: automated exposure control, adjustment of the mA and/or kV according to patient size, and/or use of iterative reconstruction technique. RADIATION DOSE: CTDIvol = 10.64 mGy, DLP = 444.14 mGy-cm COMPARISON: 02/10/2023 FINDINGS: LUNGS AND PLEURAL SPACES: 8 mm nodule in the medial left lower lobe containing a calcification. This may be a benign hamartoma. No pleural effusion or thickening. No pneumothorax. HEART: There are calcifications of the coronary arteries. Heart size is normal. No pericardial effusion. MEDIASTINUM: Unremarkable. No mediastinal or hilar adenopathy. Esophagus is unremarkable. No hiatal hernia. THYROID: Unremarkable. No thyroid lesions. BONES/JOINTS: There are degenerative changes of the shoulders. There are multi-level degenerative changes of the thoracic spine. No suspicious lytic or blastic abnormality. VASCULATURE: There is atherosclerotic calcification of the aortic arch with tortuosity and elongation of the aortic arch and descending thoracic aorta. KIDNEYS AND URETERS: 2 mm nonobstructive right renal stone. CT/Chest without Contrast IMPRESSION: 8 mm nodule in the medial left lower lobe containing a calcification. This may be a benign hamartoma. No follow up required. Electronically Signed: Femi Soares MD at 20:43 EDT ,
== END | disposition home or self-care (01) ==
LOC: CT 14:54
PROVIDERS: PCP Family Medicine; Referring Provider Internal Medicine Pulmonary Disease; Visit Provider Internal Medicine Pulmonary Disease
DX: R91.1 Solitary pulmonary nodule (principal)
CPT/HCPCS: 71250

== ENCOUNTER → 2023-10-08 | Outpatient (CLI) | payer OTHER, SELFPAY ==
[2023-10-08 07:57] LABS: AST(SGOT) 23 U/L (15-37); Alanine Aminotransfer ALT/SGPT 22 U/L (16-61); Albumin, Serum 3.8 g/dL (3.2-5.0); Alkaline Phosphatase 110 U/L (45-117); Cholesterol 185 mg/dL (200); High Density Lipoprotein 40 mg/dL; Protein, Total 7.8 g/dL (6.4-8.2); Triglycerides 149 mg/dL; Very Low Density Lipoprotein 30 mg/dL (5-40)
== END | disposition home or self-care (01) ==
LOC: LAB 06:44
PROVIDERS: PCP Family Medicine; Referring Provider Internal Medicine Cardiovascular Disease; Visit Provider Internal Medicine Cardiovascular Disease
DX: E78.00 Pure hypercholesterolemia, unspecified (principal)
CPT/HCPCS: 36415; 80061; 80076

== ENCOUNTER → 2024-05-25 | Outpatient (CLI) | payer OTHER, SELFPAY ==
--- NOTE | 2024-05-25 15:38 | RAD_ITS ---
EXAM: XR Chest, 2 Views CLINICAL INDICATION: TECHNIQUE: Frontal and lateral views of the chest. COMPARISON: No relevant prior studies available. FINDINGS: LUNGS AND PLEURAL SPACES: Hyperlucent lungs. Flattening of the diaphragm. Lingular atelectasis scarring. No pneumothorax. HEART: Unremarkable. No cardiomegaly. MEDIASTINUM: Unremarkable. Normal mediastinal contour. BONES/JOINTS: Unremarkable. No acute fracture. RAD/Chest PA and Lateral IMPRESSION: Suggestion of COPD. Reading Location: [facility]
[2024-05-25 17:51] LABS: Absolute Lymphocyte Count 1.94 X10^3/uL (0.83-4.51); Absolute Neutrophil Count 14.7 X10^3/uL (2.0-7.7); Basophil# 0.06 X10^3/uL; Basophil% 0.3 % (0-1); Eosinophil# 0.01 X10^3/uL; Eosinophils% 0.1 % (0-5); Hematocrit 46.7 % (40-54); Hemoglobin 16.2 g/dL (13.0-16.5); Lymphocyte # 1.94 X10^3/ul (0.83-4.51); Lymphocyte % 10.9 % (19-41); Mean Corp Hgb Conc 34.7 g/dL (32-36); Mean Corpuscular Hgb 30.3 pg (27.0-32.0); Mean Corpuscular Volume 87.3 fL (80-94); Mean Platelet Vol. 11.1 fl (6.2-12.0); Monocyte# 0.91 X10^3/uL; Monocyte% 5.1 % (0-10); NRBC Flagged by Analyzer 0 % (0-5); Neutrophil # 14.67 X10^3/uL (2.7-7.7); Neutrophil % 82.8 % (47-70); POSITIVE MORPHOLOGY YES; Platelet Count 206 K/mm3 (150-450); RBC Distribution Width CV 13.3 % (11.6-14.6); RBC Distribution Width SD 42.6 fl (35.1-43.9); Red Blood Count 5.35 M/mm3 (4.6-6.2); White Blood Count 17.7 K/mm3 (4.4-11.0)
[2024-05-25 18:00] LABS: Differential Indicated SCAN CRITERIA MET
[2024-05-25 18:33] LABS: ALB/GLOB Ratio 0.6 RATIO (0.9-2.4); AST(SGOT) 30 U/L (15-37); Alanine Aminotransfer ALT/SGPT 26 U/L (16-61); Albumin, Serum 3.2 g/dL (3.2-5.0); Alkaline Phosphatase 94 U/L (45-117); Anion Gap 12 (5-15); BUN 15 mg/dL (7-18); BUN/Creat Ratio 13.5 RATIO (10-20); Calcium,Total 9.5 mg/dL (8.5-10.1); Chloride 94 mmol/L (98-107); Creatinine, Serum 1.11 mg/dL (0.70-1.30); EST Glomerular Filtration Rate 70 mL/min (>60); Est Glom Filt Rate - Afr Amer 84 mL/min (>60); Globulin 5.3 g/dL (2.2-4.2); Glucose 116 mg/dL (74-106); Potassium 3.2 mmol/L (3.5-5.1); Protein, Total 8.5 g/dL (6.4-8.2); Sodium Level 132 mmol/L (136-145)
[2024-05-25 18:39] LABS: Atypical Lymphocyte RARE %; Differential Comment SCANNED; Platelet Estimate ADEQUATE (ADEQ)
[2024-05-25 18:40] LABS: Red Cell Morphology NORM C+C NORMAL (NORM C&C)
== END | disposition home or self-care (01) ==
LOC: MTLAB 15:35
PROVIDERS: PCP Family Medicine; Referring Provider Family Medicine; Visit Provider Family Medicine
DX: R06.02 Shortness of breath (principal); R19.7 Diarrhea, unspecified; R05.9 Cough, unspecified
CPT/HCPCS: 36415; 71046; 80053; 85025

== ENCOUNTER → 2024-08-18 | Outpatient (CLI) | payer OTHER, SELFPAY ==
--- NOTE | 2024-08-18 07:54 | AAVD_ITS ---
Reason For Study Reason For Study: Atherosclerosis / HX RI / CAD Aorta Measurements Aorta Doppler Measurements Proximal aorta measures2.06 x 2.06cm. in cross-sectional Peak systolic flow velocities within the proximal aorta axis. measure 61.4 cm/sec. Proximal aorta measures2.24cm. in longitudinal axis. Peak systolic flow velocities within the mid aorta measure Mid aorta measures1.95 x 1.86cm. in cross-sectional axis. 59.6 cm/sec. Mid aorta measures2.40cm. in longitudinal axis. Peak systolic flow velocities within the distal aorta Distal aorta measures2.27 x 2.18cm. in cross-sectional axis.measure 37.4 cm/sec. Distal aorta measures2.29cm. in longitudinal axis. Heterogenous Irregular plaque noted throughout Abdominal Aorta. Left Iliac Artery Left iliac artery measures 0.79 x 0.90 cm. in the cross-sectional axis. Left iliac artery measures 0.81 cm. in the longitudinal axis. Peak systolic velocity in the left iliac artery measures 394.9 cm/sec. Heterogenous irregular plaque noted throughout ERNIE. Right Iliac Artery Right iliac artery measures 0.77 x 0.78 cm. in the cross-sectional axis. Right iliac artery measures 0.86 cm. in the longitudinal axis. Peak systolic velocity in the right iliac artery measures 113.8 cm/sec. Heterogenous irregular plaque noted throughout ERNIE. Procedure Aorta IVC Iliac vasculature or bypass grafts [id number]. The exam was diagnostic. Technically difficult study due to acoustic shadowing. Exam performed in department. VL/Abd Aortic/IVC Duplex scan Interpretation Summary Aorta and right iliac no stenosis and no aneurysm. Left common iliac with sever e >75% stenosis. Ordering Physician: Judd Partida Referring Physician: Santos Martinez Performed By: Rashel Carr RVT
--- NOTE | 2024-08-18 07:54 | ADU_ITS ---
Reason For Study : BLE Atherosclerosis Right Velocities Left Velocities Ext. Iliac Artery, dist = 52.8 cm./sec. Ext Iliac Artery, dist = 79.2 cm./sec. Common Femoral Artery, mid = 59.7 cm./sec. Common Femoral Artery, mid = 96.1 cm./sec. Supf Femoral Artery, prox = 42.6 cm./sec. Supf. Femoral Artery, prox = 55.6 cm./sec. Supf Femoral Artery, mid = 61.1 cm./sec. Supf. Femoral Artery, mid = 85.0 cm./sec. Elevated Velocities noted at Dist Femoral Artery Elevated Velocities noted at Dist Femoral Artery Pre Stenosis PSV - 67.4 cm/s Pre Stenosis PSV - 68.8 cm/s At Stenosis PSV - 216.3 cm/s At Stenosis PSV - 206.4 cm/s Post Stenosis PSV - 67.4 cm/s. Post Stenosis PSV - 51.1 cm/s. Profunda Femoral Artery = 27.5 cm./sec. Profunda Femoral Artery = 36.9 cm./sec. Popliteal Artery, mid = 27.3 cm./sec. Popliteal Artery, mid = 21.5 cm./sec. Post. Tibial Artery, prox = 28.2 cm./sec. Post. Tibial Artery, prox = 15.0 cm./sec. Post. Tibial Artery, mid = 33.9 cm./sec. Post Tibial Artery, mid = 19.7 cm./sec. Post. Tibial Artery, dist = 28.2 cm./sec. Post Tibial Artery, dist. = 20.0 cm./sec. Peroneal Artery, prox = 14.6 cm./sec. Peroneal Artery, prox = 12.5 cm./sec. Peroneal Artery, mid = 15.1 cm./sec. Peroneal Artery, mid = 10.9 cm./sec. Peroneal Artery,dist = 9.4 cm./sec. Peroneal Artery,dist. = 6.5 cm./sec. Ant. Tibial Artery, prox = 22.1 cm./sec. Ant.Tibial Artery, prox = 18.6 cm./sec. Ant. Tibial Artery, mid = 19.1 cm./sec. Ant Tibial Artery, mid = 16.7 cm./sec. Ant. Tibial Artery, dist = 24.1 cm./sec. Ant. Tibial Artery, distal = 9.4 cm./sec. VL/US Art Duplex Bilat Lower Ext Interpretation Summary Significant disease, 50-75%, of the right superficial femoral artery. Significa nt disease, 50-75%, of the left superficial femoral artery. Ordering Physician: Judd Partida Referring Physician: Santos Martinez Performed By: Rashel Crar RVT
--- NOTE | 2024-08-18 07:54 | ART_ITS ---
Reason For Study : BLE Atherosclerosis Procedure A bilateral lower extremity continuous wave Doppler with analog waveform analysis and ankle brachial indexes. Left Segmental Pressures Left brachial= 143mmHg. Left posterior tibial artery = 105mmHg. Left dorsalis pedis artery = 91mmHg. Left digit = 72 mmHg. The left posterior tibial artery waveforms are biphasic. The left dorsalis pedis waveforms are biphasic. Right Segmental Pressures Right brachial= 147mmHg. Right posterior tibial artery = 125mmHg. Right dorsalis pedis artery = 106mmHg. Right digit = 79 mmHg. The right posterior tibial artery waveforms are biphasic. The right dorsalis pedis waveforms are biphasic. Indices The right ankle brachial index by the posterior tibial artery is 0.85. The right ankle brachial index by the dorsalis pedis is 0.72. The right digital-brachial index is 0.54. The left ankle brachial index by the posterior tibial artery is 0.71. The left ankle brachial index by the dorsalis pedis is 0.62. The left digital-brachial index is 0.49. VL/Ankle Brachial Index Interpretation Summary Resting ankle-brachial indices appear moderately abnormal bilaterally. Ordering Physician: Judd Partida Referring Physician: Santos Martinez Performed By: Rashel Carr RVT
== END | disposition home or self-care (01) ==
LOC: CVS 07:52
PROVIDERS: PCP Family Medicine; Referring Provider Surgery Vascular Surgery; Visit Provider Surgery Vascular Surgery
DX: I70.213 Atherosclerosis of native arteries of extremities with intermittent claudication, bilateral legs (principal); I25.10 Atherosclerotic heart disease of native coronary artery without angina pectoris; F17.200 Nicotine dependence, unspecified, uncomplicated; I25.2 Old myocardial infarction
CPT/HCPCS: 93922; 93925; 93978

== ENCOUNTER → 2024-11-17 | Outpatient (CLI) | payer OTHER, SELFPAY ==
[2024-11-17 16:49] LABS: AST(SGOT) 17 U/L (<=37); Alanine Aminotransfer ALT/SGPT 10 U/L (<=46); Albumin, Serum 4.0 g/dL (3.4-4.8); Alkaline Phosphatase 103 U/L (40-129); Bilirubin, Direct 0.09 mg/dL (0.00-0.30); Cholesterol 155 mg/dL (<=200); Globulin 3.2 g/dL (2.2-4.2); Low Density Lipoprotein Calc. 84 mg/dL; Triglycerides 170 mg/dL; Very Low Density Lipoprotein 34 mg/dL (5-40); cholesterol:hdl ratio screen 4.14
== END | disposition home or self-care (01) ==
LOC: LAB 14:05
PROVIDERS: PCP Family Medicine; Referring Provider Internal Medicine Cardiovascular Disease; Visit Provider Internal Medicine Cardiovascular Disease
DX: E78.00 Pure hypercholesterolemia, unspecified (principal)
CPT/HCPCS: 36415; 80061; 80076

== ENCOUNTER → 2025-01-11 | Outpatient (CLI) | payer OTHER, SELFPAY ==
--- NOTE | 2025-01-11 06:50 | ECHOCS_ITS ---
Reason For Study Reason For Study: CAD/ASHD Procedure This was a 2D Doppler, Color Flow transthoracic echocardiogram. The study was technically difficult. Due to COPD. Contrast injection was performed. Exam performed in department. Left Ventricle Normal LV size. The left ventricular ejection fraction is 50 %. Left ventricular systolic function is lower limits of normal. Stage 1 diastolic dysfunction. No regional wall motion abnormalities noted. Right Ventricle Normal RV size. Normal systolic function. Atria Normal left atrium. Normal right atrium. Mitral Valve Normal mitral valve. Tricuspid Valve Normal tricuspid valve. Aortic Valve The aortic valve is not well visualized. Pulmonic Valve The pulmonic valve is not well visualized. Great Vessels Normal aortic root. The pulmonary artery is normal size. Inferior vena cava collapse with respiration. Pericardium/Pleural No pericardial effusion. Medication Diluted definity 2.0ml given slow IV push to enhance endocardial definition. MMode/2D Measurements & Calculations LVIDd: 4.7 cm IVSd: 0.76 cm Ao root diam: 3.3 cm LVIDs: 3.5 cm LVPWd: 0.83 cm RVDd: 3.6 cm FS: 24.0 % LAV(MOD-bp): 41.7 ml LVAd ap4: 30.6 cm2 SV(MOD-sp4): 43.5 ml LAV(MOD-bp) Indexed: 23.1 ml/m2 LVLd ap4: 8.2 cm SI(MOD-sp4): 24.1 ml/m2 LAV(MOD-sp2): 54.5 ml EDV(MOD-sp4): 96.0 ml LAV(MOD-sp4): 29.7 ml EDV(sp4-el): 97.1 ml LVAs ap4: 20.1 cm2 LVLs ap4: 6.5 cm ESV(MOD-sp4): 52.5 ml ESV(sp4-el): 52.5 ml EF(MOD-sp4): 45.3 % EF(sp4-el): 45.9 % SV(sp4-el): 44.6 ml LA A4 area: 13.7 cm2 LA dimension(2D): 3.8 cm RA A4 area: 10.1 cm2 TAPSE: 1.8 cm Time Measurements MV dec time: 0.28 sec Doppler Measurements & Calculations MV E max jeevan: 67.3 cm/sec Lat Peak E' Jeevan: 9.5 cm/sec Med Peak E' Jeevan: 6.5 cm/sec MV A max jeevan: 94.9 cm/sec E/E' lat: 7.1 E/E' med: 10.3 MV E/A: 0.71 MV V2 max: 115.9 cm/sec MV P1/2t max jeevan: 79.3 cm/sec Ao V2 max: 149.6 cm/sec MV max P.4 mmHg MV P1/2t: 87.1 msec Ao max P.0 mmHg MV V2 mean: 55.6 cm/sec MV dec slope: 266.5 cm/sec2 Ao V2 mean: 96.9 cm/sec MV mean P.5 mmHg MVA(P1/2t): 2.5 cm2 Ao mean P.4 mmHg MV V2 VTI: 28.6 cm Ao V2 VTI: 32.9 cm AV (velocity ratio): 0.70 LV V1 max: 116.5 cm/sec LV V1 max P.4 mmHg LV V1 mean P.7 mmHg LV V1 mean: 77.8 cm/sec LV V1 VTI: 22.9 cm ECHO/Echo Complete W/ Contrast Interpretation Summary Normal LV size. No regional wall motion abnormalities noted. The left ventricular ejection fraction is 50 %. Left ventricular systolic function is lower limits of normal. Stage 1 diastolic dysfunction. Contrast injection was performed. Ordering Physician: Fermín Stone Referring Physician: Santos Martinez Performed By: Rachael Cruz, RDCS, RVT
--- OUTSIDE RECORDS SUMMARY | 2025-01-11 06:59 | XMS RPT_ITS | CCD ---
Author Organization [facility] Care Team Providers Care Maintenance Parts Technician Name Role Phone Mariola Zapata Unavailable Unavailable Tan RN, Larisa Enciso Unavailable [phone] Susan Rosado Unavailable Unavailable Mariola Zapata Unavailable Unavailable MD Chase, Fermín Cox Unavailable Dr. Santos Martinez Primary Care Provider Dr. Santos Martinez Referring Provider [facility] ENGINEERING PROFESSOR, ENGINEERING PROFESSOR-Roxanen Wills Attending Provider Juan DAILEY, Dr. Graham Primary Care Provider Juan DAILEY, Dr. Graham Attending Provider Dr. Santos Martinez MD Referring Provider Helga DAILEY, Dr. Judd Huerta Attending Provider Dr. Judd Partida MD Referring Provider Dr. Santos Mratinez MD Primary Care Provider [phone] Dr. Santos Martinez MD Referring Provider Dr. Fermín Stone MD Attending Provider Dr. Fermín Stone MD Referring Provider Santos Martinez Primary Care Unavailable Fermín Stone Attending Unavailable Santos Martinez Referring Unavailable Santos Martinez Primary Care Unavailable Santos Martinez Attending Unavailable Santos Martinez Referring Unavailable Judd Partida Attending Unavailable Judd Partida Referring Unavailable Santos Martinez Primary Care Unavailable Santos Martinez Primary Care Unavailable Fermín Stone Attending Unavailable Fermín Stone Referring Unavailable Fermín Stone Attending Unavailable Fermín Stone Referring Unavailable Santos Martinez Primary Care Unavailable Santos Martinez Primary Care Unavailable Santos Martinez Attending Unavailable Allergies Allergy Classification Reported Allergen(s) Allergy Type Date of Onset Reaction(s) Facility (5 sources) atorvastatin drug allergy 07-29-2010 [facility] Work Phone: (5 sources) lovastatin / niacin drug allergy 07-29-2010 [facility] Work Phone: (5 sources) pravastatin drug allergy 02-24-2014 [facility]lag[facility] Work Phone: (9 sources) atorvastatin Drug Allergy 09-17-2021 [facility] (9 sources) Pravastatin Drug Allergy 09-17-2021 [facility] (1 source) atorvastatin Drug Allergy 11-17-2024 [facility] (1 source) Pravastatin Drug Allergy 11-17-2024 [facility] Medications Current Medications Medication Drug Class(es) Dates Sig (Normalized) Sig (Original) [id number] 200 actuat albuterol 0.09 mg/actuat metered dose inhaler (5 sources) beta2-Adrenergic Agonist Start: 11-17-2024 Albuterol Sulfate 90 mcg/actuation HFA aerosol inhaler Active INHALATION Q4H as needed November 17, 2024 1:43pm Start: 10-13-2023 End: 11-17-2024 Albuterol Sulfate 90 mcg/act uation HFA aerosol inhaler Discontinued INHALATION October 13, 2023 12:00am November 17, 2024 1:45pm Albuterol Sulfate 0.63 mg/3 mL solution for nebulization (3 sources) Start: 10-13-2023 take 0.63 mg by inhalation once daily Albuterol Sulfate 0.63 mg/3 mL solution for nebulization Active 0.63 mg INHALATION DAILY October 13, 2023 12:00am ascorbic acid 500 mg oral capsule (9 sources) Vitamin C Start: 03-19-2021 take 1 capsule by mouth once daily Ascorbic Acid (Vitamin C) 500 mg capsule Active 500 mg PO DAILY March 19, 2021 1:00am aspirin 81 mg delayed release oral tablet (19 sources) Nonsteroidal Anti-inflammatory Drug Start: 04-07-2017 take 1 tablet by mouth once daily Aspirin (Adult Aspirin Regimen) 81 mg tablet,delayed release (DR/EC) Active 81 mg PO daily April 07, 2017 1:00am Start: 07-29-2010 take 1 tablet by john th once daily ASPIRIN 81 MG TABS One tablet by mouth daily ASPIRIN [id number] [place] Haji Start: 07-29-2010 take 1 tablet by john th once daily ASPIRIN 81 MG TABS One tablet by mouth daily ASPIRIN [id number] [place] H[facility] Start: 07-29-2010 take 1 tablet by john th once daily ASPIRIN EC 81 MG TBEC One tablet by mouth daily ASPIRIN [id number] Larisa Howell PA-C cetirizine hydrochloride 10 mg oral tablet (17 sources) Histamine-1 Receptor Antagonist Start: 09-30-2018 End: 10-13-2023 take 1 tablet by mouth once daily as needed Cetirizine (Zyrtec) 10 mg tablet Active 10 mg PO DAILY as needed October 13, 2023 1:03pm Start: 07-29-2010 take 1 tablet by john th once daily ZYRTEC ALLERGY 10 MG TABS One tablet by mouth daily CETIRIZINE HCL [id number] [place] Haji cilostazol 100 mg oral tablet (20 sources) Phosphodiesterase 3 Inhibitor Start: 04-07-2017 End: 09-29-2017 take 1 tablet by mouth twice daily Cilostazol 100 mg tablet Active 100 mg PO TWICE A DAY 180 3 September 29, 2017 3:42pm Start: 03-22-2015 take 1 tablet by john th twice daily PLETAL 100 MG TABS One tablet by mouth twice daily CILOSTAZOL [id number] Larisa Howell PA-C clopidogrel 75 mg oral tablet (20 sources) P2Y12 Platelet Inhibitor Start: 09-30-2018 End: 11-17-2024 take 1 tablet by mouth once daily Clopidogrel 75 mg tablet Active 75 mg PO DAILY 90 3 November 17, 2024 4:43pm Start: 09-30-2018 End: 09-30-2018 Clopidogrel 75 mg tablet Discontinued PO 90 90 0 September 30, 2018 12:00am September 30, 2018 2:06pm Start: 04-07-2017 End: 05-17-2018 take 1 tablet by mouth once daily Clopidogrel 75 mg tablet Discontinued 75 mg PO daily 90 90 3 May 22, 2017 5:09pm May 16, 2018 1:00am May 17, 2018 1:09am Start: 04-07-2017 End: 05-22-2017 Clopidogrel 75 mg tablet Discontinued PO 90 0 April 07, 2017 1:00am May 22, 2017 5:11pm Start: 07-29-2010 take 1 tablet by john th once daily PLAVIX 75 MG TABS One tablet by mouth daily CLOPIDOGREL BISULFATE [id number] SOFIA LucasC diazePAM 5 mg oral tablet (20 sources) Benzodiazepine Start: 09-17-2021 take 1 tablet by mouth twice daily as needed for anxiety Diazepam (Valium) 5 mg tablet Active 5 mg PO TWICE A DAY as needed for Anxiety September 17, 2021 1:10pm Start: 11-17-2017 End: 09-17-2021 Diazepam (Valium) 5 mg table t Discontinued 5 mg PO 2 to 3 times per day as needed for Anxiety November 17, 2017 12:00am September 17, 2021 1:10pm Start: 07-29-2010 DIAZEPAM 5 MG TABS As needed DIAZEPAM [id number] [place] Haji Lxmlejtdiuk-Xktpirkpv-Sprowx er (3 sources) Anticholinergic, Corticosteroid, beta2-Adrenergic Agonist Start: 10-13-2023 Tawhrtmywpk-Pvbicyftv-Xfuhpv er (Trelegy Ellipta) 100-62.5-25 mcg blister with device Active 1 NMA INHALATION daily October 13, 2023 12:00am guaiFENesin 400 mg oral tabl et (3 sources) Start: 10-13-2023 t a hetal e 4 0 0 m g b y m o u t h o n c e d a i l y guaifenesin (Mucinex) Active 400 mg PO DAILY October 13, 2023 12:00am 24 hr metoprolol succinate 2 5 mg extended release oral tablet (20 sources) beta-Adrenergic Isaak Start: 03-30-2017 End: 11-17-2024 t miryam fong e 1 t a b l e t b y m o u t h o n c e d a i l y Metoprolol Succinate 25 mg tablet extended release 24 hr Active 25 mg PO daily 90 3 November 17, 2024 4:43pm Start: 12-10-2011 take 1 tablet by john th once daily TOPROL XL 25 MG [id number] One tablet by mouth daily METOPROLOL SUCCINATE [id number] Fermín Stone MD Start: 12-10-2011 take 1 tablet by john th once daily TOPROL XL 25 MG [id number] One tablet by mouth daily METOPROLOL SUCCINATE [id number] Fermín Stone MD Multivitamin preparation (6 sources) Start: 09-30-2018 take 1 tablet by mouth once daily Multivitamin Active 1 TABLET PO DAILY September 29, 2018 11:00pm Start: 09-30-2018 take 1 tablet by john th once daily Multivitamin Active 1 TABLET PO DAILY September 30, 2018 12:00am Multivitamin tablet (3 sources) Start: 09-30-2018 Multivitamin t ablet Active 1 {tbl} PO DAILY September 30, 2018 12:00am omega-3 acid ethyl esters (u sp) 1000 mg oral capsule (9 sources) Start: 11-17-2017 Fisk 3-Dha-Ep a-Fish Oil (Fish Oil) 1,000 mg (120 mg-180 mg) capsule Active 1 NMA PO DAILY 0 November 17, 2017 12:00am psyllium 400 mg oral capsule (20 sources) Start: 09-17-2021 Psyllium Husk (Daily Fiber) 0.4 gram capsule Active 0.8 g PO DAILY September 17, 2021 1:10pm Start: 09-30-2019 End: 09-17-2021 Psyllium Husk (Daily Fiber) 0.4 gram capsule Discontinued 1.2 g PO DAILY September 30, 2019 12:00am September 17, 2021 1:10pm Start: 11-17-2017 End: 09-30-2019 Psyllium Husk (Fiber (Psylli um Husk)) 0.4 gram capsule Discontinued 0.4 g PO ONCE November 17, 2017 12:00am September 30, 2019 2:16pm Completed/Discontinued Medications Medication Drug Class(es) Dates Sig (Normalized) Sig (Original) acetaminophen 325 mg / oxyCODONE hydrochloride 5 mg oral tablet (9 sources) Opioid Agonist Start: 11-29-2020 End: 03-19-2021 Oxycodone-Acetamino phen (Percocet) 5-325 mg tablet Discontinued 1 {tbl} PO Q4H as needed for pain 10 5 0 November 29, 2020 March 19, 2021 3:57pm Right inguinal hernia calcium polycarbophil 625 mg oral tablet (5 sources) Start: 03-22-2015 take 1 tablet by mouth once daily FIBER 625 MG TABS One tablet by mouth daily CALCIUM POLYCARBOPHIL [id number] Larisa Howell PA-C cinnamon bark 500 mg oral capsule (10 sources) Start: 09-21-2014 End: 03-22-2015 CINNAMON 500 MG CAPS 1000 2 caps daily CINNAMON [id number] Larisa Howell PA-C fenofibric acid 135 mg delayed release oral capsule (10 sources) Peroxisome Proliferator Receptor alpha Agonist Start: 07-29-2010 End: 05-02-2011 take 1 tablet by mouth once daily TRILIPIX 135 MG CPDR One tablet by mouth daily CHOLINE FENOFIBRATE [id number] [place] Haji fish oil (5 sources) Start: 09-21-2014 take 1 tablet by mouth once daily FISH OIL CAPS One tablet by mouth daily OMEGA-3 FATTY ACIDS CAPS [id number] Fermín Stone MD 24 hr niacin 1000 mg extended release oral tablet (20 sources) Nicotinic Acid Start: 07-29-2010 End: 08-12-2013 take 2 tablets by mouth once daily NIASPAN 1000 MG CR-TABS (ER) Two tablets by mouth daily NIACIN (ANTIHYPERLIPIDEMIC ) [id number] Fermín Stone MD Start: 07-29-2010 End: 08-12-2013 take 2 tablets by mouth once daily NIASPAN 1000 MG CR-TABS (ER) Two tablets by mouth daily NIACIN (ANTIHYPERLIPIDEMIC) [id number] Fermín Stone MD nitroglycerin 0.4 mg sublingual tablet (20 sources) Nitrate Vasodilator Start: 09-17-2021 End: 10-13-2023 Nitroglycerin 0.4 mg tablet, sublingual Discontinued 0.4 mg SL every 5 to 15 minutes as needed for chest pain 09 05October 14, 2022 1:27pm October 13, 2023 1:27pm do not exceed 3 doses per episode Start: 09-17-2021 End: 10-14-2022 Nitroglycerin Active 0.4 MG SL every 5 to 15 minutes October 14, 2022 1:27pm do not exceed 3 doses per episode Start: 11-27-2020 End: 09-17-2021 Nitroglycerin 3 mg Tablet Ex tended Release Discontinued 4 mg BUCCAL NEEDED as needed for Chest Pain November 27, 2020 12:00am September 17, 2021 1:09pm Start: 11-27-2020 End: 09-17-2021 Nitroglycerin Discontinued 4 MG BUCCAL NEEDED November 26, 2020 11:00pm September 17, 2021 12:09pm Start: 11-27-2020 End: 09-17-2021 Nitroglycerin Discontinued 4 MG BUCCAL NEEDED November 27, 2020 12:00am September 17, 2021 1:09pm Start: 04-07-2017 End: 01-27-2018 Nitroglycerin 0.4 mg tablet, sublingual Discontinued 0.4 mg SL every 5 to 15 minutes as needed for chest pain September 29, 2017 3:42pm January 26, 2018 12:00am January 27, 2018 12:08am Start: 04-07-2017 End: 01-27-2018 Nitroglycerin Discontinued 0 .4 MG SL every 5 to 15 minutes September 29, 2017 3:42pm January 27, 2018 12:08am Start: 07-29-2010 NITROSTAT 0.4 MG SUBL 1 tablet under tongue every 5 min up to 3 X NITROGLYCERIN [id number] Fermín Stone MD pravastatin sodium 20 mg oral tablet (10 sources) HMG-CoA Reductase Inhibitor Start: 08-12-2013 End: 02-24-2014 take 1 tablet by mouth once daily PRAVASTATIN SODIUM 20 MG TABS One tablet by mouth daily PRAVASTATIN SODIUM [id number] Larisa Howell PA-C Problems Active Problems Problem Classification Problem Date Documented Da te Episodic/Chronic Abdominal hernia (9 sources) Right inguinal hernia ; Translations: [Unilateral inguinal hernia, without obstruction or gangrene, not specified as recurrent] 03-19-2021 Episodic Coronary atherosclerosis and other heart disease (20 sources) Coronary arteriosclerosis; Translations: [Coronary atherosclerosis] Onset: 07-29-2010 07-29-2010 Chronic Coronary atherosclerosis and other heart disease (10 sources) Coronary angioplasty status; Translations: [History of myocardial infarction] Onset: 05-14-2006 07-29-2010 Episodic Disorders of lipid metabolism (18 sources) Hyperlipidemia; Translations: [Hyperlipidemia, unspecified] Onset: 07-29-2010 07-29-2010 Chronic Essential hypertension (12 sources) Essential hypertension; Translations: [Essential (primary) hypertension] Chronic Other nutritional; endocrine; and metabolic disorders (5 sources) Lipoprotein deficiency disorder; Translations: [Lipoprotein deficiency] Onset: 07-29-2010 07-29-2010 Chronic Peripheral and visceral atherosclerosis (20 sources) Peripheral vascular disease; Translations: [Peripheral vascular disease, unspecified] Onset: 10-18-2014 10-18-2014 Chronic Substance-related disorders (4 sources) Smoker; Translations: [Nicotine dependence, unspecified, uncomplicated] 10-13-2023 Chronic Superficial injury; contusion (9 sources) Abrasion of left cornea; Translations: [Injury of conjunctiva and corneal abrasion without foreign body, left eye, initial encounter] 06-07-2018 Episodic Unclassified (2 sources) Long-term drug therapy; Translations: [Other longterm (current) drug therapy] Onset: 07-29-2010 07-29-2010 Past or Other Problems Problem Classification Problem Date Documented Da te Episodic/Chronic Nonspecific chest pain (5 sources) Tight chest; Translations: [Other chest pain] Onset: 07-29-2010 07-29-2010 Episodic Other aftercare (3 sources) Other 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 service 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 (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) 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 therapy; Translations: [Other 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 service 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 (current) drug therapy] Onset: 07-29-2010 07-29-2010 Episodic Other circulatory disease (8 sources) Carotid bruit; Translations: [History of myocardial infarction] Onset: 07-29-2010 07-29-2010 Episodic Other connective tissue disease (5 sources) Pain in lower limb; Translations: [Pain in leg, unspecified] Onset: 12-16-2012 12-16-2012 Episodic Other lower respiratory disease (1 source) Shortness of breath; Translations: [Shortness of breath] Onset: 06-09-2024 Episodic Residual codes; unclassified (2 sources) FH: Hypertension; Translations: [Family history of ischemic heart disease and other diseases of the circulatory system] 02-24-2014 Episodic Unclassified (8 sources) Family history of stroke; Translations: [FH: Hypertension] 02-24-2014 Episodic Results Test Name Value Interpretation Reference Range Facility Bilirubin directOrdered By: Fermín Stone on 11-17-2024 Bilirubin.direct [Mass/Vol] 0.09 mg/dL 0.00-0.30 [facility] Bilirubin, totalOrdered By: Fermín Stone on 11-17-2024 Bilirubin [Mass/Vol] 0.16 mg/dL 0.00-1.30 [place] Calculated very low density lipoprotein (VLDL) cholesterol measurementOrdered By: Fermín Stone on 11-17-2024 Calculated very low density lipoprotein (VLDL) cholesterol measurement 34 mg/dL 5-40 [facility] Cardiology Visit Reporton Cardiology Visit Report [facility] [address] [place] [address] OFFICE VISIT Date of Service: 11/17/24 MR#: [id number] Acct: [id number] Name: LASHANDA DEL CASTILLO Rep #: [id number] : 1955 Provider: Dr. Fermín Stone MD Age/Sex: 69/M [place] [facility] [place]: Signed HPI HPI History of Present Illness Details: LASHANDA DEL CASTILLO, is a 69 M who presents for a cardiovascular patient follow-up. He is a gentleman with a history of coronary disease status post myocardial infarction in 2007. At that time he underwent cardiac catheterization and angioplasty and stenting of the right coronary artery. He unfortunately continues to abuse tobacco products his last stress test was in 2020 and at that time it demonstrated no evidence of ischemia with minimal naomi-infarct ischemia noted at a good functional capacity. He did have evidence of ischemic cardiomyopathy. He denies chest, arm, jaw, or neck discomfort. He denies palpitations or bilateral lower extreme edema. He acknowledges shortness of breath activity when he is doing a lot of work during hotter weather. This is not new or worsening. He denies shortness of breath at rest, orthopnea, cough, or PND. He acknowledges dizziness when he first gets up. He denies lightheadedness, near-syncope, or syncope. He denies fatigue. Intake Vital Signs 10/13/23 13:00 11/17/24 13:38 Height 5 ft 9 in 5 ft 9 in Weight: 150 lb BMI 22.1 BP 127/65 H Blood Pressure Location Lt brachial Position Sitting Respiration 18 Pulse 69 Pulse Source Monitor Intake Visit Reasons: 1 Y FU Wheel Fitter Required: No Accompanied by: Is patient in pain?: No Allergies atorvastatin (From Lipitor) Adverse Reaction (Severe, Verified 11/17/24 13:42) [facility] pravastatin (From Pravachol) Adverse Reaction (Severe, Verified 11/17/24 13:42) [facility] Medications ???Medication ???Instructions ???Recorded ???Confirmed ???Type aspirin 81 mg tablet,delayed 81 mg PO QDAY 04/07/17 11/17/24 Hi story release (Adult Aspirin Regimen) cilostazol 100 mg tablet 100 mg PO BID #180 tabs 09/29/17 0 11/17/24 Rx omega 9-hiv-kwx-fish oil 1,000 mg 1 cap PO DAILY 11/17/17 11/17/24 History (120 mg-180 mg) capsule (Fish Oil) multivitamin 1 tab PO DAILY 09/30/18 11/17/24 H istory ascorbic acid (vitamin C) 500 mg 500 mg PO DAILY 03/19/21 11/17/24 History capsule diazepam 5 mg tablet (Valium) 5 mg PO BID PRN Anxiety 09/17/21 0 11/17/24 History psyllium husk 0.4 gram capsule 0.8 g PO DAILY 09/17/21 11/17/24 H istory (Daily Fiber) albuterol sulfate 0.63 mg/3 mL 0.63 mg inhalation DAILY 10/13/23 11/17/24 History solution for nebulization cetirizine 10 mg tablet (Zyrtec) 10 mg PO DAILY PRN 10/13/23 History fluticasone fur. 100 mcg-umeclid 1 ea inhalation QDAY 10/13/2310/20 History 62.5 mcg-vilant 25 mcg inhalat.powder (Trelegy Ellipta) guaifenesin [Mucinex] 400 mg PO DAILY 10/13/23 11/17/24 History nitroglycerin 0.4 mg sublingual 0.4 mg sublingual Q5-15M PRN chest 10/13/23 11/17/24 Rx tablet pain #25 tabs metoprolol succinate 25 mg 25 mg PO QDAY #90 tabs 10/11/24 Rx tablet,extended release 24 hr clopidogrel 75 mg tablet 75 mg PO DAILY #90 tabs 11/14/24 0 11/17/24 Rx albuterol sulfate 90 mcg/actuation inhalation Q4H PRN 11/17/2410/20 History aerosol inhaler Have you fallen in the past year?: No PFSH Medical History Essential hypertension Wears dentures Wears glasses Easy bruising Excessive bleeding Restless legs Dietary restriction Smoker COPD (chronic obstructive pulmonary disease) Chronic cough Leg cramps Right inguinal hernia Atherosclerosis of coronary artery without angina pectoris Carotid artery disease 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 infarction Atherosclerosis of coronary artery of [place] heart without angina pectoris PVD (peripheral vascular disease) with claudication Hyperlipidemia Hepatitis A Surgical History History of hernia repair History of coronary artery stent placement (05/14/06) History of nasal polypectomy H/O shoulder surgery History of appendectomy Social History Smoking Status: Current every day smoker tobacco type: cigarettes alcohol intake: current substance use type: does not use caffeine: Yes Type: carbonated beverages Number of servings: 2 what type of physical activity do you participate in: none ROS Const Const: Negative for fatigue or weakness Eyes Eyes: Negative for change in vision ENT ENT: Negative for dizziness or balance problems Cardio Chest Pain: No Palpitations: No Edema: None R (more content not included)... Normal [facility] LDL calc ser/plasOrdered By: Fermín Chase on 11-17-2024 Cholesterol in LDL [Mass/Vol] 84 mg/dL [facility] Comment on above: Fjrxvozvpw=677-176 m g/dL & Higher Yqki=358 mg/dL or greaterFriedwald Equation for LDL-C Laboratory - Chemistry and C hemistry - challengeOrdered By: Fermín Chase on 11-17-2024 AST [Catalytic activity/Vol] 17 U/L <38 [facility] Lipid Profileon 11-17-2024 CHOL:HDL 4.14 Normal [facility] Comment on above: Performed By: #### L 500.4100, L500.3400 #### [facility] [address] [place], [address] Cholesterol [Mass/Vol] 155 mg/dL Normal <=200 [facility] Comment on above: Result Comment: Chol esterol level, Desirable <200 mg/dL Borderline high cholesterol 200-239 mg/dL High cholesterol >=240 mg/dL Recommendations of the NCEP Adult Treatment Panel for the following risk-cutoff thresholds for the [place] population. Performed By: #### L 500.4100, L500.3400 #### [facility] [address] [place], [address] Cholesterol in HDL [Mass/Vol] 37 mg/dL Low [facility] Comment on above: Result Comment: [place] on[place] Cholesterol Education Program (NCEP) guidelines: <40 mg/dL: Low HDL-cholesterol (major risk factor for CHD) >= 60 mg/dL: High HDL-cholesterol (negative risk factor for CHD) HDL-cholesterol is affected by a number of factors, e.g. smoking, exercise, hormones, sex and age. Performed By: #### L 500.4100, L500.3400 #### [facility] [address] [place], [address] Cholesterol in LDL [Mass/Vol] 84 mg/dL Normal [facility] Comment on above: Result Comment: Bord uferqu=600-667 mg/dL Higher Bqvn=805 mg/dL or greater Friedwald Equation for LDL-C Performed By: #### L 500.4100, L500.3400 #### [facility] [address] [place], [address] Cholesterol in VLDL [Mass/Vol] 34 mg/dL Normal 5-40 [facility] Comment on above: Performed By: #### L 500.4100, L500.3400 #### [facility] [address] [place], [address] Triglyceride [Mass/Vol] 170 mg/dL Normal [facility] Comment on above: Result Comment: The drugs N-Acetylcysteine and Metamizole may falsely depress this assay. Normal range: <150 mg/dL Borderline High: 150-199 mg/dL High: 200-499 mg/dL Very High: >500 mg/dL Performed By: #### L 500.4100, L500.3400 #### [facility] [address] [place], [address] Liver Profileon 11-17-2024 Albumin [Mass/Vol] 4.0 g/dL Normal 3.4-4.8 [facility] Comment on above: Performed By: #### L 500.4100, L500.3400 #### [facility] [address] [place], [address] ALK PHOS 103 U/L Normal 40-129 [facility] Comment on above: Performed By: #### L 500.4100, L500.3400 #### [facility] [address] [place], [address] ALT [Catalytic activity/Vol] 10 U/L Normal <=46 [facility] Comment on above: Performed By: #### L 500.4100, L500.3400 #### [facility] [address] [place], [address] AST [Catalytic activity/Vol] 17 U/L Normal <=37 [facility] Comment on above: Performed By: #### L 500.4100, L500.3400 #### [facility] [address] [place], [address] Bilirubin [Mass/Vol] 0.16 mg/dL Normal 0.00-1.30 [place] Comment on above: Performed By: #### L 500.4100, L500.3400 #### [facility] [address] [place], [address] Bilirubin.direct [Mass/Vol] 0.09 mg/dL Normal 0.00-0.30 [facility] Comment on above: Performed By: #### L 500.4100, L500.3400 #### [facility] [address] [place], [address] Globulin (S) [Mass/Vol] 3.2 g/dL Normal 2.2-4.2 [facility] Comment on above: Performed By: #### L 500.4100, L500.3400 #### [facility] [address] [place], [address] T PROT 7.2 g/dL Normal 5.9-8.4 [facility] Comment on above: Performed By: #### L 500.4100, L500.3400 #### [facility] [address] [place], [address] Screening total cholesterol/ high density lipoprotein (HDL) cholesterol ratioOrdered By: Fermín Stone on 11-17-2024 Cholesterol.total/Choles terol in HDL [Mass ratio] 4.14 {ratio} [facility] Serum globulin measurementOr dered By: Fermín Stone on 11-17-2024 Globulin (S) [Mass/Vol] 3.2 g/dL 2.2-4.2 [facility] Serum or plasma alanine mcdowell otransferase (ALT) measurementOrdered By: Fermín Stone on 11-17-2024 ALT [Catalytic activity/Vol] 10 U/L <47 [facility] Serum or plasma albumin candelario urement (mass/volume)Ordered By: Fermín Stone on 11-17-2024 Albumin [Mass/Vol] 4.0 g/dL 3.4-4.8 [facility] Serum or plasma alkaline jessika sphatase measurementOrdered By: Fermín Stone on 11-17-2024 ALP [Catalytic activity/Vol] 103 U/L 40-129 [facility] Serum or plasma cholesterol in HDL measurement (mass/volume)Ordered By: Fermín Chase on 11-17-2024 Cholesterol in HDL [Mass/Vol] 37 mg/dL Low >40 [facility] Comment on above: National Cholesterol Education Program (NCEP) guidelines:<40 mg/dL: Low HDL-cholesterol (major risk factor for CHD)>= 60 mg/dL: High HDL-cholesterol (negative risk factor for CHD)HDL-cholesterol is affected by a number of factors, e.g. smoking, exercise, hormones, sex and age. Serum or plasma cholesterol measurement (mass/volume)Ordered By: Fermín Stone on 11-17-2024 Cholesterol [Mass/Vol] 155 mg/dL <201 [facility] Comment on above: Cholesterol level, D esirable <200 mg/dLBorderline high cholesterol 200-239 mg/dLHigh cholesterol >=240 mg/dLRecommendations of the NCEP Adult Treatment Panel for the following risk-cutoff thresholds for the [place] population. Total proteinOrdered By: Jose Roberto Stone on 11-17-2024 Protein [Mass/Vol] 7.2 g/dL 5.9-8.4 [facility] Triglycerides measurementOrd ered By: Fermín Stone on 11-17-2024 Triglyceride [Mass/Vol] 170 mg/dL <199 [facility] Comment on above: The drugs N-Acetylcy steine and Metamizole may falsely depress this assay. Normal range: <150 mg/dLBorderline High: 150-199 mg/dLHigh: 200-499 mg/dLVery High: >500 mg/dL Abd Aortic/IVC Duplex scanon 08-18-2024 Abd Aortic/IVC Duplex scan [facility] [place] [address] Abd Aortic/IVC Duplex scan 08/18/24 0803 MR#: [id number] Acct: [id number] Name: LASHANDA DEL CASTILLO Rep #: [id number] : 1955 69 From: Judd Partida MD Attending Dr: Dr. Judd Partida MD Status: RE G CLI Ordering Dr: Judd Partida MD Date: 08/18/24 Location: [facility] Sex: M C Admitted: Reason For Study Reason For Study: Atherosclerosis / HX WA / CAD Aorta Measurements Aorta Doppler Measurements Proximal aorta measures2.06 x 2.06cm. in cross-sectional Peak systolic flow velocities within the proximal aorta axis. measure 61.4 cm/sec. Proximal aorta measures2.24cm. in longitudinal axis. Peak systolic flow velocities within the mid aorta measure Mid aorta measures1.95 x 1.86cm. in cross-sectional axis. 59.6 cm/sec. Mid aorta measures2.40cm. in longitudinal axis. Peak systolic flow velocities within the distal aorta Distal aorta measures2.27 x 2.18cm. in cross-sectional axis.measure 37.4 cm/sec. Distal aorta measures2.29cm. in longitudinal axis. Heterogenous Irregular plaque noted throughout Abdominal Aorta. Left Iliac Artery Left iliac artery measures 0.79 x 0.90 cm. in the cross-sectional axis. Left iliac artery measures 0.81 cm. in the longitudinal axis. Peak systolic velocity in the left iliac artery measures 394.9 cm/sec. Heterogenous irregular plaque noted throughout ERNIE. Right Iliac Artery Right iliac artery measures 0.77 x 0.78 cm. in the cross-sectional axis. Right iliac artery measures 0.86 cm. in the longitudinal axis. Peak systolic velocity in the right iliac artery measures 113.8 cm/sec. Heterogenous irregular plaque noted throughout ERNIE. Procedure Aorta IVC Iliac vasculature or bypass grafts 38437. The exam was diagnostic. Technically difficult study due to acoustic shadowing. Exam performed in department. VL/Abd Aortic/IVC Duplex scan Interpretation Summary Aorta and right iliac no stenosis and no aneurysm. Left common iliac with severe >75% stenosis. Ordering Physician: Judd Partida Referring Physician: Santos Martinez Performed By: Rashel Carr, ANABEL 08/18/241922 Date Judd Partida MD CC: Dr. Judd Partida MD; Dr. Santos Martinez MD Date Dictated: 08/18/24802 Date Transcribed: 08/18/241922 Lean Specialist: Signed Normal [facility] Abdominal aortic duplex scan reportOrdered By: Judd Partida on 08-18-2024 US.doppler Thoracic and abdominal aorta [facility] [address] [place] [address] Abd Aortic/IVC Duplex scan 08/18/24802 MR#: [id number] Acct: [id number] Name: LASHANDA DEL CASTILLO Rep #:[id number] : 1955 69 From: Judd phan MD Attending Dr: Dr. Judd Partida MD Status: REG CLI Ordering Dr: Judd Partida MD Date: 08/18/24 Location: [facility] Sex: M C Admitted: Reason For Study Reason For Study: Atherosclerosis / HX WA / CAD Aorta Measurements Aorta Doppler Measurements Proximal aorta measures2.06 x 2.06cm. in cross-sectional Peak systolic flow velocities within the proximal aorta axis. measure 61.4 cm/sec. Proximal aorta measures2.24cm. in longitudinal axis. Peak systolic flow velocities within the mid aorta measure Mid aorta measures1.95 x 1.86cm. in cross-sectional axis. 59.6 cm/sec. Mid aorta measures2.40cm. in longitudinal axis. Peak systolic flow velocities within the distal aorta Distal aorta measures2.27 x 2.18cm. in cross-sectional axis.measure 37.4 cm/sec. Distal aorta measures2.29cm. in longitudinal axis. Heterogenous Irregular plaque noted throughout Abdominal Aorta. Left Iliac Artery Left iliac artery measures 0.79 x 0.90 cm. in the cross-sectional axis. Left iliac artery measures 0.81 cm. in the longitudinal axis. Peak systolic velocity in the left iliac artery measures 394.9 cm/sec. Heterogenous irregular plaque noted throughout ERNIE. Right Iliac Artery Right iliac artery measures 0.77 x 0.78 cm. in the cross-sectional axis. Right iliac artery measures 0.86 cm. in the longitudinal axis. Peak systolic velocity in the right iliac artery measures 113.8 cm/sec. Heterogenous irregular plaque noted throughout ERNIE. Procedure Aorta IVC Iliac vasculature or bypass grafts 75140. The exam was diagnostic. Technically difficult study due to acoustic shadowing. Exam performed in department. VL/Abd Aortic/IVC Duplex scan Interpretation Summary Aorta and right iliac no stenosis and no aneurysm. Left common iliac with severe>75% stenosis. Ordering Physician: Judd Partida Referring Physician: Santos Martinez Performed By: Rashel Carr RVT 08/18/241922 Date _ Judd Partida MD CC: Dr. Judd Partida MD; Dr. Santos Martinez MD ~ Date Dictated: 08/18/24802 Date Transcribed: 08/18/241922 Lean Specialist: Signed [facility] Work Phone: Ankle Brachial Indexon 08-18 Ankle Brachial Index [facility] [address] [place] [address] Ankle Brachial Index 08/18/24 0819 MR#: [id number] Acct: [id number] Name: LASHANDA DEL CASTILLO Rep #: [id number] : 1955 69 From: Judd Partida MD Attending Dr: Dr. Judd Partida MD Status: DE P CLI Ordering Dr: Judd Partida MD Date: 08/18/24 Location: [facility] Sex: M C Admitted: Reason For Study : BLE Atherosclerosis Procedure A bilateral lower extremity continuous wave Doppler with analog waveform analysis and ankle brachial indexes. Left Segmental Pressures Left brachial= 143mmHg. Left posterior tibial artery = 105mmHg. Left dorsalis pedis artery = 91mmHg. Left digit = 72 mmHg. The left posterior tibial artery waveforms are biphasic. The left dorsalis pedis waveforms are biphasic. Right Segmental Pressures Right brachial= 147mmHg. Right posterior tibial artery = 125mmHg. Right dorsalis pedis artery = 106mmHg. Right digit = 79 mmHg. The right posterior tibial artery waveforms are biphasic. The right dorsalis pedis waveforms are biphasic. Indices The right ankle brachial index by the posterior tibial artery is 0.85. The right ankle brachial index by the dorsalis pedis is 0.72. The right digital-brachial index is 0.54. The left ankle brachial index by the posterior tibial artery is 0.71. The left ankle brachial index by the dorsalis pedis is 0.62. The left digital-brachial index is 0.49. VL/Ankle Brachial Index Interpretation Summary Resting ankle-brachial indices appear moderately abnormal bilaterally. Ordering Physician: Judd Partida Referring Physician: Santos Martinez Performed By: Rashel Carr, RVT 12/14/24903 Date Judd Partida MD CC: Dr. Judd Partida MD; Dr. Santos Martinez MD Date Dictated: 08/18/24818 Date Transcribed: 08/18/241918 Lean Specialist: Signed Normal [facility] Arterial Doppler ultrasound reportOrdered By: Judd Partida on 08-18-2024 Study report [facility] [address] [place] [address] US Art Duplex Bilat Lower Ext 08/18/24 0816 MR#: [id number] Acct: [id number] Name: LASHANDA DEL CASTILLO Rep #:[id number] : 1955 69 From: Judd phan MD Attending Dr: Dr. Judd Partida MD Status: REG CLI Ordering Dr: Judd Partida MD Date: 08/18/24 Location: [facility] Sex: M C Admitted: Reason For Study Reason For Study: BLE Atherosclerosis Right Velocities Left Velocities Ext. Iliac Artery, dist = 52.8 cm./sec. Ext Iliac Artery, dist = 79.2 cm./sec. Common Femoral Artery, mid = 59.7 cm./sec. Common Femoral Artery, mid = 96.1 cm./sec. Supf Femoral Artery, prox = 42.6 cm./sec. Supf. Femoral Artery, prox = 55.6 cm./sec. Supf Femoral Artery, mid = 61.1 cm./sec. Supf. Femoral Artery, mid = 85.0 cm./sec. Elevated Velocities noted at Dist Femoral Artery Elevated Velocities noted at Dist Femoral Artery Pre Stenosis PSV - 67.4 cm/s Pre Stenosis PSV - 68.8 cm/s At Stenosis PSV - 216.3 cm/s At Stenosis PSV - 206.4 cm/s Post Stenosis PSV - 67.4 cm/s. Post Stenosis PSV - 51.1 cm/s. Profunda Femoral Artery = 27.5 cm./sec. Profunda Femoral Artery = 36.9 cm./sec. Popliteal Artery, mid = 27.3 cm./sec. Popliteal Artery, mid = 21.5 cm./sec. Post. Tibial Artery, prox = 28.2 cm./sec. Post. Tibial Artery,prox = 15.0 cm./sec. Post. Tibial Artery, mid = 33.9 cm./sec. Post Tibial Artery, mid = 19.7 cm./sec. Post. Tibial Artery, dist = 28.2 cm./sec. Post Tibial Artery, dist. = 20.0 cm./sec. Peroneal Artery, prox = 14.6 cm./sec. Peroneal Artery, prox = 12.5 cm./sec. Peroneal Artery, mid = 15.1 cm./sec. Peroneal Artery, mid= 10.9 cm./sec. Peroneal Artery,dist = 9.4 cm./sec. Peroneal Artery,dist. = 6.5 cm./sec. Ant. Tibial Artery, prox = 22.1 cm./sec. Ant.Tibial Artery, prox = 18.6 cm./sec. Ant. Tibial Artery, mid = 19.1 cm./sec. Ant Tibial Artery, mid = 16.7 cm./sec. Ant. Tibial Artery, dist = 24.1 cm./sec. Ant. Tibial Artery, distal = 9.4 cm./sec. /US Art Duplex Bilat Lower Ext Interpretation Summary Significant disease, 50-74%, of the right superficial femoral artery. Significant disease, 50-74%, of the left superficial femoral artery. Ordering Physician: Judd Partida Referring Physician: Santos Martinez Performed By: Rashel Carr RVT 08/18/241920 Date _ Judd Partida MD CC: Dr. Judd Partida MD; Dr. Santos Martinez MD ~ Date Dictated: 08/18/24815 Date Transcribed: 08/18/241920 Lean Specialist: Signed [facility] Work Phone: Arterial study reportOrdered By: Judd Partida on 08-18-2024 Noninvasive arteriosclerosis study report [facility] [address] [place] [address] Ankle Brachial Index 08/18/24 0819 MR#: [id number] Acct: [id number] Name: LASHANDA DEL CASTILLO Rep #:[id number] : 1955 69 From: Judd phan MD Attending Dr: Dr. Judd Partida MD Status: REG CLI Ordering Dr: Judd Partida MD Date: 08/18/24 Location: [facility] Sex: M C Admitted: Reason For Study Reason For Study: BLE Atherosclerosis Procedure A bilateral lower extremity continuous wave Doppler with analog waveform analysis and ankle brachial indexes. Left Segmental Pressures Left brachial= 143mmHg. Left posterior tibial artery = 105mmHg. Left dorsalis pedis artery = 91mmHg. Left digit = 72 mmHg. The left posterior tibial artery waveforms are biphasic. The left dorsalispedis waveforms are biphasic. Right Segmental Pressures Right brachial= 147mmHg. Right posterior tibial artery = 125mmHg. Right dorsalispedis artery = 106mmHg. Right digit = 79 mmHg. The right posterior tibial artery waveforms are biphasic. The right dorsalis pedis waveforms are biphasic. Indices The right ankle brachial index by the posterior tibial artery is 0.85. The rightankle brachial index by the dorsalis pedis is 0.72. The right digital-brachial index is 0.54. The left ankle brachialindex by the posterior tibial artery is 0.71. The left ankle brachial index by the dorsalis pedis is 0.62. The left digital-brachial index is 0.49. VL/Ankle Brachial Index Interpretation Summary Resting ankle-brachial indices appear mildly abnormal bilaterally. Ordering Physician: Judd Partida Referring Physician: Santos Martinez Performed By: Rashel Carr RVT 08/18/241918 Date _ Judd Partida MD CC: Dr. Judd Partida MD; Dr. Santos Martinez MD ~ Date Dictated: 08/18/24818 Date Transcribed: 08/18/241918 Lean Specialist: Signed [facility] Work Phone: US Art Duplex Bilat Lower Ex ton 08-18-2024 US Art Duplex Bilat Lower Ext [facility] [address] [place] [address] US Art Duplex Bilat Lower Ext 08/18/24815 MR#: [id number] Acct: [id number] Name: LASHANDA DEL CASTILLO Rep #: [id number] : 1955 69 From: Judd Partida MD Attending Dr: Dr. Judd Partida MD Status: DE P CLI Ordering Dr: Judd Partida MD Date: 08/18/24 Location: [facility] Sex: M C Admitted: Reason For Study : BLE Atherosclerosis Right Velocities Left Velocities Ext. Iliac Artery, dist = 52.8 cm./sec. Ext Iliac Artery, dist = 79.2 cm./sec. Common Femoral Artery, mid = 59.7 cm./sec. Common Femoral Artery, mid = 96.1 cm./sec. Supf Femoral Artery, prox = 42.6 cm./sec. Supf. Femoral Artery, prox = 55.6 cm./sec. Supf Femoral Artery, mid = 61.1 cm./sec. Supf. Femoral Artery, mid = 85.0 cm./sec. Elevated Velocities noted at Dist Femoral Artery Elevated Velocities noted at Dist Femoral Artery Pre Stenosis PSV - 67.4 cm/s Pre Stenosis PSV - 68.8 cm/s At Stenosis PSV - 216.3 cm/s At Stenosis PSV - 206.4 cm/s Post Stenosis PSV - 67.4 cm/s. Post Stenosis PSV - 51.1 cm/s. Profunda Femoral Artery = 27.5 cm./sec. Profunda Femoral Artery = 36.9 cm./sec. Popliteal Artery, mid = 27.3 cm./sec. Popliteal Artery, mid = 21.5 cm./sec. Post. Tibial Artery, prox = 28.2 cm./sec. Post. Tibial Artery, prox = 15.0 cm./sec. Post. Tibial Artery, mid = 33.9 cm./sec. Post Tibial Artery, mid = 19.7 cm./sec. Post. Tibial Artery, dist = 28.2 cm./sec. Post Tibial Artery, dist. = 20.0 cm./sec. Peroneal Artery, prox = 14.6 cm./sec. Peroneal Artery, prox = 12.5 cm./sec. Peroneal Artery, mid = 15.1 cm./sec. Peroneal Artery, mid = 10.9 cm./sec. Peroneal Artery,dist = 9.4 cm./sec. Peroneal Artery,dist. = 6.5 cm./sec. Ant. Tibial Artery, prox = 22.1 cm./sec. Ant.Tibial Artery, prox = 18.6 cm./sec. Ant. Tibial Artery, mid = 19.1 cm./sec. Ant Tibial Artery, mid = 16.7 cm./sec. Ant. Tibial Artery, dist = 24.1 cm./sec. Ant. Tibial Artery, distal = 9.4 cm./sec. /US Art Duplex Bilat Lower Ext Interpretation Summary Significant disease, 50-75%, of the right superficial femoral artery. Significant disease, 50-75%, of the left superficial femoral artery. Ordering Physician: Judd Partida Referring Physician: Santos Martinez Performed By: Rashel Carr, T 12/14/24905 Date Judd Partida MD CC: Dr. Judd Partida MD; Dr. Santos Martinez MD Date Dictated: 08/18/24815 Date Transcribed: 08/18/241920 Lean Specialist: Signed Normal [facility] Absolute lymphocyte countOrd ered By: Santos Martinez on 05-25-2024 Lymphocytes Auto (Unsp spec) [#/Vol] 1.94 10*3/uL 0.83-4.51 [facility] Absolute neutrophil countOrd ered By: Santos Martinez on 05-25-2024 Neutrophils (Bld) [#/Vol] 14.7 10*3/uL High 2.0-7.7 [facility] Albumin to globulin ratioOrd ered By: Santos Martinez on 05-25-2024 Albumin/Globulin [Mass ratio] 0.6 {ratio} Low 0.9-2.4 [facility] Automated lymphocyte count a s percentage of total leukocytesOrdered By: Santos Martinez on 05-25-2024 Lymphocytes/100 WBC Auto (Unsp spec) 10.9 % Low 19-41 [facility] Basophil percentageOrdered B y: Santos Martinez on 05-25-2024 Basophils/100 WBC (Bld) 0.3 % 0-1 [facility] Bilirubin, totalOrdered By: Santos Martinez on 05-25-2024 Bilirubin [Mass/Vol] 0.60 mg/dL 0.20-1.00 [facility] Comment on above: For patients on eltr ombopag therapy, use of Dimension [place] TBIL is not recommended. Blood manual differential co mment interpretation (narrative result)Ordered By: Santos Martinez on 05-25-2024 Manual differential comment Efren (Bld) [Interp] SCANNED [facility] Blood urea nitrogen (BUN)/cr eatinine ratioOrdered By: Santos Martinez on 05-25-2024 Urea nitrogen/Creatinine [Mass ratio] 13.5 mg/mg 10-20 [facility] CBC W/Diff, Automatedon RED CELL MORPH NORM C+C Normal NORM C C [facility] Comment on above: Performed By: #### L 500.4050, L100.0100 #### [facility] [address] [place], [address] ATYPICAL LYMPH RARE Normal [facility] Comment on above: Performed By: #### L 500.4050, L100.0100 #### [facility] [address] [place], [address] PLT EST ADEQUATE Normal ADEQ [facility] Comment on above: Performed By: #### L 500.4050, L100.0100 #### [facility] [address] [place], [address] SMEAR COMMENT SCANNED Normal [facility] Comment on above: Performed By: #### L 500.4050, L100.0100 #### [facility] [address] [place], [address] Carbon dioxide measurementOr dered By: Santos Martinez on 05-25-2024 CO2 [Moles/Vol] 26.0 mmol/L 21.0-32.0 [facility] Chest PA and Lateralon 05-25 Chest PA and Lateral [facility] Services [address] [place] [address] Chest PA and Lateral MR#: [id number] Acct: [id number] Name: LASHANDA DEL CASTILLO Rep #: [id number] : 1955 M 68 From: Reji Franklin MD PCP: Dr. Santos Martinez MD Status: REG CLI Study: Chest PA and Lateral Date of Exam: 05/25/24 Exam# [id number] Ordering Dr: Santos Martinez MD EXAM: XR Chest, 2 Views CLINICAL INDICATION: TECHNIQUE: Frontal and lateral views of the chest. COMPARISON: No relevant prior studies available. FINDINGS: LUNGS AND PLEURAL SPACES: Hyperlucent lungs. Flattening of the diaphragm. Lingular atelectasis scarring. No pneumothorax. HEART: Unremarkable. No cardiomegaly. MEDIASTINUM: Unremarkable. Normal mediastinal contour. BONES/JOINTS: Unremarkable. No acute fracture. RAD/Chest PA and Lateral IMPRESSION: Suggestion of COPD. Reading Location: [facility] CC: Dr. Santos Martinez MD Lean Specialist: Signed Normal [facility] Chloride measurementOrdered By: Santos Martinez on 05-25-2024 Chloride [Moles/Vol] 94 mmol/L Low 98-107 [facility] Comprehensive Metabolic Prof ilon 05-25-2024 Albumin [Mass/Vol] 3.2 g/dL Normal 3.2-5.0 [facility] Comment on above: Performed By: #### L 500.4050, L100.0100 #### [facility] [address] [place], [address] Albumin/Globulin [Mass ratio] 0.6 {ratio} Low 0.9-2.4 [facility] Comment on above: Performed By: #### L 500.4050, L100.0100 #### [facility] [address] [place], [address] ALK P 94 U/L Normal 45-117 [facility] Comment on above: Performed By: #### L 500.4050, L100.0100 #### [facility] [address] [place], [address] ALT [Catalytic activity/Vol] 26 U/L Normal 16-61 [facility] Comment on above: Performed By: #### L 500.4050, L100.0100 #### [facility] [address] [place], [address] AST [Catalytic activity/Vol] 30 U/L Normal 15-37 [facility] Comment on above: Performed By: #### L 500.4050, L100.0100 #### [facility] [address] [place], [address] Bilirubin [Mass/Vol] 0.60 mg/dL Normal 0.20-1.00 [facility] Comment on above: Result Comment: For patients on eltrombopag therapy, use of Dimension [place] TBIL is not recommended. Performed By: #### L 500.4050, L100.0100 #### [facility] [address] [place], [address] BUN/CRE 13.5 RATIO Normal 10-20 [facility] Comment on above: Performed By: #### L 500.4050, L100.0100 #### [facility] [address] [place], [address] CA,Total 9.5 mg/dL Normal 8.5-10.1 [facility] Comment on above: Performed By: #### L 500.4050, L100.0100 #### [facility] [address] [place], [address] Chloride [Moles/Vol] 94 mmol/L Low 98-107 [facility] Comment on above: Performed By: #### L 500.4050, L100.0100 #### [facility] [address] [place], [address] CO2 [Moles/Vol] 26.0 mmol/L Normal 21.0-32.0 [facility] Comment on above: Performed By: #### L 500.4050, L100.0100 #### [facility] [address] [place], [address] Creatinine [Mass/Vol] 1.11 mg/dL Normal 0.70-1.30 [facility] Comment on above: Result Comment: The validity of the calculated GFR GFRAA in patients over 70 years has not been determined. Clinical correlation is essential. Performed By: #### L 500.4050, L100.0100 #### [facility] [address] [place], [address] EST GFR - AA 84 mL/min Normal >60 [facility] Comment on above: Result Comment: Afri can Chinese GFR Calc Performed By: #### L 500.4050, L100.0100 #### [facility] [address] [place], [address] GAP 12 Normal 5-15 [facility] Comment on above: Performed By: #### L 500.4050, L100.0100 #### [facility] [address] [place], [address] GFR/1.73 sq M.predicted among non-blacks MDRD (S/P/Bld) [Vol rate/Area] 70 mL/min/{1.73_m2} Normal >60 [facility] Comment on above: Result Comment: Non- GFR Calc Performed By: #### L 500.4050, L100.0100 #### [facility] [address] [place], [address] Globulin (S) [Mass/Vol] 5.3 g/dL High 2.2-4.2 [facility] Comment on above: Performed By: #### L 500.4050, L100.0100 #### [facility] [address] [place], [address] Glucose [Mass/Vol] 116 mg/dL High 74-106 [facility] Comment on above: Result Comment: Fast ing Glucose result from 100 to 125 mg/dL suggests IMPAIRED HOMEOSTASIS per A.D.A. criteria. Performed By: #### L 500.4050, L100.0100 #### [facility] [address] [place], [address] Potassium [Moles/Vol] 3.2 mmol/L Low 3.5-5.1 [facility] Comment on above: Performed By: #### L 500.4050, L100.0100 #### [facility] [address] [place], [address] Sodium [Moles/Vol] 132 mmol/L Low 136-145 [facility] Comment on above: Performed By: #### L 500.4050, L100.0100 #### [facility] [address] [place], [address] T PROT 8.5 g/dL High 6.4-8.2 [facility] Comment on above: Performed By: #### L 500.4050, L100.0100 #### [facility] [address] [place], [address] Urea nitrogen [Mass/Vol] 15 mg/dL Normal 7-18 [facility] Comment on above: Performed By: #### L 500.4050, L100.0100 #### [facility] [address] [place], [address] Eosinophil percentageOrdered By: Santos Martinez on 05-25-2024 Eosinophils/100 WBC (Bld) 0.1 % 0-5 [facility] Erythrocyte distribution wid th ratioOrdered By: Santos Martinez on 05-25-2024 Erythrocyte distribution width (RBC) [Ratio] 13.3 % 11.6-14.6 [facility] Erythrocyte distribution wid th standard deviationOrdered By: Santos Martinez on 05-25-2024 Erythrocyte distribution width (RBC) [Ratio] 42.6 fl 35.1-43.9 [facility] Erythrocyte morphology asses smentOrdered By: Santos Martinez on 05-25-2024 RBC morphology finding Nom (Bld) NORM C+C NORMAL NORM C&C [facility] Glomerular filtration rate ( GFR) estimationOrdered By: Santos Martinez on 05-25-2024 GFR/1.73 sq M.predicted among non-blacks MDRD (S/P/Bld) [Vol rate/Area] 70 mL/min/{1.73_m2} >60 [facility] Comment on above: Non- GFR Calc Glucose measurementOrdered B y: Santos Martinez on 05-25-2024 Glucose [Mass/Vol] 116 mg/dL High 74-106 [facility] Comment on above: Fasting Glucose resu lt from 100 to 125 mg/dL suggests IMPAIRED HOMEOSTASIS per A.D.A. criteria. Hematocrit Auto (Bld) [Volum e fraction]Ordered By: Santos Martinez on 05-25-2024 Hematocrit (Bld) [Volume fraction] 46.7 % 40-54 [facility] Hemoglobin measurementOrdere d By: Satnos Martinez on 05-25-2024 Hemoglobin (Bld) [Mass/Vol] 16.2 g/dL 13.0-16.5 [facility] Immature granulocytes/100 WB C Auto (Bld)Ordered By: Santos Martinez on 05-25-2024 Immature granulocytes/100 WBC (Bld) 0.800 % 0.0-0.9 [facility] Comment on above: IG% - Immature Granu locytes (promyelocytes, myelocytes and metamyelocytes) > 1% indicates that a LEFT SHIFT is Present. Laboratory - Chemistry and C hemistry - challengeOrdered By: Santos Martinez on 05-25-2024 AST [Catalytic activity/Vol] 30 U/L 15-37 [facility] MCV (mean corpuscular volume ) determinationOrdered By: Santos Martinez on 05-25-2024 MCV (RBC) [Entitic vol] 87.3 fL 80-94 [facility] Mean corpuscular hemoglobin (MCH) determinationOrdered By: Santos Martinez on 05-25-2024 MCH (RBC) [Entitic mass] 30.3 pg 27.0-32.0 [facility] Mean corpuscular hemoglobin concentration (MCHC) determinationOrdered By: Santos Martinez on 05-25-2024 MCHC (RBC) [Mass/Vol] 34.7 g/dL 32-36 [facility] Mean platelet volume determi nationOrdered By: Santos Martinez on 05-25-2024 Platelet mean volume (Bld) [Entitic vol] 11.1 fL 6.2-12.0 [facility] Monocyte percentageOrdered B y: Santos Martinez on 05-25-2024 Monocytes/100 WBC (Bld) 5.1 % 0-10 [facility] Neutrophil percentageOrdered By: Santos Martinez on 05-25-2024 Neutrophils/100 WBC (Bld) 82.8 % High 47-70 [facility] Nucleated red blood cell per centageOrdered By: Santos Martinez on 05-25-2024 Nucleated RBC/100 WBC (Bld) [Ratio] 0 % 0-5 [facility] Platelet countOrdered By: Maikel Martinez on 05-25-2024 Platelets (Bld) [#/Vol] 206 10*3/uL 150-450 [facility] Platelet estimateOrdered By: Santos Martinez on 05-25-2024 Platelets LM Ql (Bld) ADEQUATE ADEQ [facility] Potassium measurementOrdered By: Santos Martinez on 05-25-2024 Potassium [Moles/Vol] 3.2 mmol/L Low 3.5-5.1 [facility] RBC Auto (Bld) [#/Vol]Ordere d By: Santos Martinez on 05-25-2024 RBC (Bld) [#/Vol] 5.35 10*6/uL 4.6-6.2 [facility] Serum anion gap measurementO rdered By: Santos Martinez on 05-25-2024 Anion gap [Moles/Vol] 12 mmol/L 5-15 [facility] Serum globulin measurementOr dered By: Santos Martinez on 05-25-2024 Globulin (S) [Mass/Vol] 5.3 g/dL High 2.2-4.2 [facility] Serum or plasma alanine mcdowell otransferase (ALT) measurementOrdered By: Santos Martinez on 05-25-2024 ALT [Catalytic activity/Vol] 26 U/L 16-61 [facility] Serum or plasma albumin candelario urement (mass/volume)Ordered By: Santos Martinez on 05-25-2024 Albumin [Mass/Vol] 3.2 g/dL 3.2-5.0 [facility] Serum or plasma alkaline jessika sphatase measurementOrdered By: Santos Martinez on 05-25-2024 ALP [Catalytic activity/Vol] 94 U/L 45-117 [facility] Serum or plasma calcium candelario urement (mass/volume)Ordered By: Santos Martinez on 05-25-2024 Calcium [Mass/Vol] 9.5 mg/dL 8.5-10.1 [facility] Serum or plasma creatinine m easurement (mass/volume)Ordered By: Santos Martinez on 05-25-2024 Creatinine [Mass/Vol] 1.11 mg/dL 0.70-1.30 [facility] Comment on above: The validity of the calculated GFR & GFRAA in patients over 70 years has not been determined. Clinical correlation is essential. Serum or plasma urea nitroge n measurement (mass/volume)Ordered By: Santos Martinez on 05-25-2024 Urea nitrogen [Mass/Vol] 15 mg/dL 7-18 [facility] Sodium levelOrdered By: Santos Martinez on 05-25-2024 Sodium [Moles/Vol] 132 mmol/L Low 136-145 [facility] Total proteinOrdered By: Eugenie Martinez on 05-25-2024 Protein [Mass/Vol] 8.5 g/dL High 6.4-8.2 [facility] White blood cell (WBC) count Ordered By: Santos Martinez on 05-25-2024 WBC (Bld) [#/Vol] 17.7 10*3/uL High 4.4-11.0 [facility] Basophil percentageOrdered B y: Dr. Stone on 10-09-2022 Bilirubin [Mass/Vol] 0.30 mg/dL 0.20-1.00 [place] Comment on above: For patients on eltr ombopag therapy, use of Dimension [place] TBIL is not recommended. Cholesterol [Mass/Vol] 167 mg/dL <200 [facility] Comment on above: <200 mg/dL Desirable 200-240 mg/dL Borderline >240 mg/dL High Risk Protein [Mass/Vol] 7.7 g/dL 6.4-8.2 [facility] Triglyceride [Mass/Vol] 146 mg/dL <199 [facility] Comment on above: The drugs N-Acetylcy steine and Metamizole may falsely depress this assay.Serum Triglycerides Reference Interval Normal <150 mg/dL Borderline high 150 - 199 mg/dL High 200 - 499 mg/dL Very High > or = 500 mg/dL Direct bilirubinOrdered By: Dr. Stone on 10-09-2022 Bilirubin.direct [Mass/Vol] 0.08 mg/dL 0.00-0.30 [facility] Laboratory - Chemistry and C hemistry - challengeOrdered By: Dr. Stone on 10-09-2022 ALP [Catalytic activity/Vol] 106 U/L 45-117 [facility] ALT [Catalytic activity/Vol] 18 U/L 16-61 [facility] Globulin (S) [Mass/Vol] 3.9 g/dL 2.2-4.2 [facility] Serum or plasma albumin candelario urement (mass/volume)Ordered By: Dr. Stone on 10-09-2022 Albumin [Mass/Vol] 3.8 g/dL 3.2-5.0 [facility] Serum or plasma cholesterol in HDL measurement (mass/volume)Ordered By: Dr. Stone on 10-09-2022 Cholesterol in HDL [Mass/Vol] 36 mg/dL >40 [facility] Comment on above: The drugs N-Acetylcy steine and Metamizole may falsely depress this assay. Reference Range HDL <40 mg/dL Low HDL Cholesterol HDL >or= 60 mg/dL High HDL Cholesterol Serum or plasma cholesterol in VLDL measurement (mass/volume)Ordered By: Dr. Stone on 10-09-2022 Cholesterol in VLDL [Mass/Vol] 29 mg/dL 5-40 [facility] Serum or plasma low density lipoprotein (LDL) cholesterol measurement (mass/volume)Ordered By: Dr. Stone on 10-09-2022 Cholesterol in LDL [Mass/Vol] 102 mg/dL 0-130 [facility] Thin prep Papanicolaou smear with manual screeningOrdered By: Dr. Stone on 10-09-2022 Thin prep Papanicolaou smear with manual screening 16 U/L 15-37 [facility] No Panel Informationon 12-09 Prostate Specific Antigen Screen 2.05 ng/mL 0.00-4.00 [facility] Work Phone: Comment on above: This test was perfor med using the TPSA assay method for the[facility]. Values obtained with differentassay methods cannot be used interchangably.When changing PSA assays in the course of monitoring apatient, additional sequential testing should be carriedout to confirm baseline values. Basophil percentageon 2021 Bilirubin [Mass/Vol] 0.20 mg/dL 0.20-1.00 [place] Work Phone: Comment on above: For patients on eltr ombopag therapy, use of Dimension [place] TBIL is not recommended. Cholesterol [Mass/Vol] 146 mg/dL <200 [facility] Work Phone: Comment on above: <200 mg/dL Desirable 200-240 mg/dL Borderline >240 mg/dL High Risk Protein [Mass/Vol] 7.5 g/dL 6.4-8.2 [facility] Work Phone: [phone] Triglyceride [Mass/Vol] 102 mg/dL <199 [facility] Work Phone: Comment on above: The drugs N-Acetylcy steine and Metamizole may falsely depress this assay.Serum Triglycerides Reference Interval Normal <150 mg/dL Borderline high 150 - 199 mg/dL High 200 - 499 mg/dL Very High > or = 500 mg/dL Direct bilirubinon 2 Bilirubin.direct [Mass/Vol] 0.06 mg/dL 0.00-0.30 [facility] Work Phone: [phone] Laboratory - Chemistry and C hemistry - challengeon 12-06-2021 ALP [Catalytic activity/Vol] 99 U/L 45-117 [facility] Work Phone: [phone] ALT [Catalytic activity/Vol] 16 U/L 16-61 [facility] Work Phone: [phone] Globulin (S) [Mass/Vol] 3.9 g/dL 2.2-4.2 [facility] Work Phone: [phone] Serum or plasma albumin candelario urement (mass/volume)on 12-06-2021 Albumin [Mass/Vol] 3.6 g/dL 3.2-5.0 [facility] Work Phone: [phone] Serum or plasma cholesterol in HDL measurement (mass/volume)on 12-06-2021 Cholesterol in HDL [Mass/Vol] 38 mg/dL >40 [facility] [employer] Work Phone: Comment on above: The drugs N-Acetylcy steine and Metamizole may falsely depress this assay. Reference Range HDL <40 mg/dL Low HDL Cholesterol HDL >or= 60 mg/dL High HDL Cholesterol Serum or plasma cholesterol in VLDL measurement (mass/volume)on 12-06-2021 Cholesterol in VLDL [Mass/Vol] 20 mg/dL 5-40 [facility] Work Phone: Serum or plasma low density lipoprotein (LDL) cholesterol measurement (mass/volume)on 12-06-2021 Cholesterol in LDL [Mass/Vol] 88 mg/dL 0-130 [facility] Work Phone: Thin prep Papanicolaou smear with manual screeningon 12-06-2021 Thin prep Papanicolaou smear with manual screening 13 U/L 15-37 [facility] Work Phone: Office Visiton 09-23-2016 Documentation of current medications (procedure) Done Invalid Interpretation Code [employer] Work Phone: [phone] Fall risk assessment Fall risk assessment Invali d Interpretation Code [employer] Phone: [phone] Smoking cessation education (procedure) yes Invalid Interpretation Code [employer] Phone: [phone] Tobacco smoking status NHIS Current every day smoker [employer] Phone: [phone] Tobacco use CPHS Current every day smoker Invalid Interpretation Code [employer] Phone: [phone] Lab Report: Lipid Profileon 09-20-2016 Cholesterol [Mass/Vol] 179 mg/dL Invalid Interpretation Code 200 [employer] Work Phone: [phone] Cholesterol in HDL [Mass/Vol] 36 mg/dL Low [employer] Phone: [phone] Cholesterol in LDL [Mass/Vol] 123 mg/dL Invalid Interpretation Code 0-130 [employer] Work Phone: [phone] Lipoprotein.pre-beta [Mass/Vol] 20 mg/dL Invalid Interpretation Code 5-40 [employer] Work Phone: [phone] Triglyceride [Mass/Vol] 100 mg/dL Invalid Interpretation Code [employer] Phone: [phone] Lab Report: Liver Profileon 09-20-2016 Albumin [Mass/Vol] 3.7 g/dL Invalid Interpretation Code 3.4-5.0 [employer] Work Phone: [phone] Alkaline phosphatase (ALP) 76 U/L Invalid Interpretation Code 45-117 [employer] Work Phone: [phone] ALP (Bld) [Catalytic activity/Vol] 76 U/L 45-117 [employer] Work Phone: [phone] ALT [Catalytic activity/Vol] 21 U/L Invalid Interpretation Code 12-78 [employer] Work Phone: [phone] AST [Catalytic activity/Vol] 19 U/L Invalid Interpretation Code 15-37 [employer] Work Phone: [phone] Bilirubin [Mass/Vol] 0.40 mg/dL Invalid Interpretation Code 0.20-1.00 [employer] 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 Phone: [phone] Office Visit: [facility] 03-25-20 Documentation of current medications (procedure) Done Invalid Interpretation Code [employer] Work Phone: [phone] Lab Report: Lipid Profileon 09-07-2015 Cholesterol 154 mg/dL Invalid Interpretation Code 200 [employer] Work Phone: [phone] HDL Cholesterol 32 mg/dL Low [employer] Work Phone: [phone] LDL Cholesterol 102 mg/dL Invalid Interpretation Code 0-130 [employer] Work Phone: [phone] Triglyceride 102 mg/dL Invalid Interpretation Code [employer] Work Phone: [phone] very low density lipoproteins 20 mg/dL Invalid Interpretation Code 5-40 [employer] Work Phone: [phone] Lab Report: Liver Profileon 09-07-2015 Alanine aminotransferase (ALT) 19 U/L Invalid Interpretation Code 12-78 [employer] Work Phone: [phone] Albumin 3.5 g/dL Invalid Interpretation Code 3.4-5.0 [employer] Work Phone: [phone] Alkaline phosphatase (ALP) 86 U/L Invalid Interpretation Code 50-136 [employer] Work Phone: [phone] Aspartate aminotransferase (AST) 14 U/L Low 15-37 [employer] Phone: [phone] Bilirubin (direct) 0.10 mg/dL Invalid Interpretation Code 0.00-0.30 [employer] Work Phone: [phone] Bilirubin (total) 0.40 mg/dL Invalid Interpretation Code 0.20-1.00 [employer] Phone: [phone] Globulin 3.6 g/dL High 2.3-3.5 [employer] Work Phone: [phone] Protein 7.1 g/dL Invalid Interpretation Code 6.4-8.2 [employer] Phone: [phone] Office Visit: [facility] 03-22-20 15 Smoking cessation education (procedure) yes Invalid Interpretation Code [employer] Phone: [phone] Tobacco smoking status NHIS Current every day smoker [employer] Phone: [phone] Tobacco use CPHS Current every day smoker Invalid Interpretation Code [employer] Phone: [phone] Replaced Document: Noe Monique CG Observationson 03-22-2015 EKG QRS axis 50 deg [employer] Phone: [phone] electrocardiogram interpretation Sinus Rhythm - Nonspecific T-abnormality. ABNORMAL Invalid Interpretation Code [employer] Phone: [phone] GE use only - for [employer] import when terms are not otherwise specified 412 ms Invalid Interpretation Code [employer] Work Phone: [phone] Interpretation Sinus Rhythm - Nonspecific T-abnormality. ABNORMAL [employer] Work Phone: [phone] P Grandy 63 deg [employer] Work Phone: [phone] P wave axis, electrocardiogram 63 deg Invalid Interpretation Code [employer] Work Phone: [phone] IA Interval 156 ms [employer] Work Phone: [phone] IA interval, electrocardiogram 156 ms Invalid Interpretation Code [employer] Work Phone: [phone] Pulse (Heart Rate) 75 /min Invalid Interpretation Code [employer] Work Phone: [phone] QRS axis, electrocardiogram 50 deg Invalid Interpretation Code [employer] Work Phone: [phone] QRS Duration 106 ms [employer] Work Phone: [phone] QRS duration, electrocardiogram 106 ms Invalid Interpretation Code [employer] Phone: [phone] QT Interval new path ms [employer] Work Phone: [phone] QT interval, electrocardiogram new path ms Invalid Interpretation Code [employer] Work Phone: [phone] QTc Dalal 412 ms [employer] Phone: [phone] T Grandy -1 deg [employer] Work Phone: [phone] T wave axis, electrocardiogram -1 deg Invalid Interpretation Code [employer] Phone: [phone] Office Visiton 09-21-2014 cardiac risk group C Invalid Interpretation Code [employer] Work Phone: [phone] General cardiovascular disease 10Y risk [#] Alma.D'Agostino N/A Invalid Interpretation Code [employer] Phone: [phone] Lab Report: Basic Metabolic Profile (BMP)on 08-21-2014 Anion gap 7 mmol/L Invalid Interpretation Code -15 [employer] Work Phone: [phone] Anion gap [Moles/Vol] 7 mmol/L 5-15 [employer] Work Phone: [phone] BUN/Creatinine Ratio 16.7 RATIO Invalid Interpretation Code 10-20 [facility] Work Phone: [phone] Calcium 8.4 mg/dL Low 8.5-10.1 [facility] [employer] Work Phone: [phone] Chloride 109 mmol/L High 98-107 [facility] [employer] Work Phone: [phone] CO2 23.0 mmol/L Invalid Interpretation Code 21.0-32.0 [facility] [employer] Work Phone: [phone] CO2 (BldV) [Partial pressure] 23.0 mmol/L 21.0-32.0 [facility] [employer] Work Phone: [phone] Creatinine 0.9 mg/dL Invalid Interpretation Code 0.8-1.3 [facility] [employer] Work Phone: [phone] eGFR (non-black) 91 mL/min/{1.73_m2} Invalid Interpretation Code >60 [employer] Work Phone: [phone] eGFR (non-black) 110 mL/min/{1.73_m2} Invalid Interpretation Code >60 [employer] Work Phone: [phone] EST GFR - AA 110 mL/min >60 [facility] Work Phone: [phone] Glucose 101 mg/dL Invalid Interpretation Code 70-110 [facility] [employer] Work Phone: [phone] Glucose [Mass/Vol] 101 mg/dL 70-110 [facility] [employer] Work Phone: [phone] Potassium 4.3 mmol/L Invalid Interpretation Code 3.5-5.1 [employer] Work Phone: [phone] Sodium 139 mmol/L Invalid Interpretation Code 136-145 [facility] [employer] Work Phone: [phone] Urea nitrogen 15 mg/dL Invalid Interpretation Code 7-18 [facility] [employer] Work Phone: [phone] Replaced Document: Noe MALIK Observationson 12-16-2012 Pulse (Heart Rate) 410 ms Invalid Interpretation Code [facility] Work Phone: [phone] Vital Signs Date Time Vital Sign Value Performing Clinician Luz donohue 11-17-2024 13:38-0400 Body height 175.[address] Santos Martinez MD Work Phone: [facility] 11-17-2024 13:38-0400 Body mass index (BMI) [Ratio] 22.1 kg/m2 Dr. Santos Martinez MD Work Phone: [facility] 11-17-2024 13:38-0400 Body weight 68.[address] Santos Martinez MD Work Phone: [facility] 11-17-2024 13:38-0400 Diastolic blood pressure 65 mm[Hg] Dr. Santos Martinze MD Work Phone: [facility] 11-17-2024 13:38-0400 Heart rate 69 /min Dr. Santos Martinez MD Work Phone: [facility] 11-17-2024 13:38-0400 Respiratory rate 18 /min Dr. Santos Martinez MD Work Phone: [facility] 11-17-2024 13:38-0400 Systolic blood pressure 127 mm[Hg] Dr. Santos Martinez MD Work Phone: [facility] 09-17-2021 13:05-0400 Body height 175.[address] Santos Martinez Work Phone: [facility] Work Phone: 09-17-2021 13:05-0400 Body mass index (BMI) [Ratio] 21.8 kg/m2 Dr. Santos Martinez Work Phone: [facility] Work Phone: 09-17-2021 13:05-0400 Body weight 67.[address] Sanots Martinez Work Phone: [facility] Work Phone: 09-17-2021 13:05-0400 Diastolic blood pressure 69 mm[Hg] Dr. Santos Martinez Work Phone: [facility] Work Phone: 09-17-2021 13:05-0400 Heart rate 78 /min Dr. Santos Martinez Work Phone: [facility] Work Phone: 09-17-2021 13:05-0400 Respiratory rate 18 /min Dr. Santos Martinez Work Phone: [facility] Work Phone: 09-17-2021 13:05-0400 Systolic blood pressure 120 mm[Hg] Dr. Santos Martinez Work Phone: [facility] Work Phone: 09-23-2016 15:25-0400 BMI (Body Mass Index) 23.33 kg/m2 [facility] Work Phone: 09-23-2016 15:25-0400 Body weight 71.67 kg [facility] Work Phone: 09-23-2016 15:25-0400 BP Diastolic 60 mm[Hg] [facility] Zapata [facility] Work Phone: 09-23-2016 15:25-0400 BP Systolic 120 mm[Hg] [facility] Work Phone: 09-23-2016 15:25-0400 Height 175.26 cm [facility] Work Phone: 09-23-2016 15:25-0400 Pulse (Heart Rate) 80 /min [facility] Work Phone: 09-23-2016 15:25-0400 Weight 71.67 kg [facility] Work Phone: 03-25-2016 15:43-0500 BMI (Body Mass Index) 22.83 kg/m2 Larisa Maddox RN [facility] Work Phone: 03-25-2016 15:43-0500 Body weight 70.13 kg Fermín Stone MD [facility] Work Phone: 03-25-2016 15:43-0500 BP Diastolic 60 mm[Hg] Larisa Maddox [facility] Work Phone: 03-25-2016 15:43-0500 BP Systolic 132 mm[Hg] Larisa Maddox RN [facility] Work Phone: 03-25-2016 15:43-0500 BSA (Body Surface Area) 1.85 m2 Larisa Maddox RN [facility] Work Phone: 03-25-2016 15:43-0500 Pulse (Heart Rate) 72 /min [facility] Work Phone: 03-25-2016 15:43-0500 Respiratory Rate 20 /min [facility] Work Phone: 03-25-2016 15:43-0500 Weight 70.13 kg Larisa Maddox RN [facility] Work Phone: 03-22-2015 13:06-0500 Heart rate 75 /min Fermín Stone MD [facility] Work Phone: 12-16-2012 16:09-0400 Heart rate 410 ms Fermín Stone MD [facility] Work Phone: 05-02-2011 16:18-0500 Height 175.26 cm Larisa Maddox RN [facility] Work Phone: Encounters Encounter Date Encounter Type Care Provider Facility Start: 01-11-2025 ambulatory Fermín Stone Facility:[facility] Start: 11-17-2024 End: 11-17-[address] Fermín Stone MD -[facility] Work Phone: Start: 11-17-2024 End: 11-17-[address] Santos Martinez MD Work Phone: -[facility] Start: 11-17-2024 End: 11-17-2024 ambulatory Santos Martinez Facility:[facility] Start: 08-18-2024 End: 08-18-[address] Santos Martinez MD Work Phone: [facility] Work Phone: Start: 08-18-2024 End: 08-18-[address] Judd Partida MD -Cardiovascular Services Work Phone: Start: 08-18-2024 End: 08-18-2024 ambulatory Judd Partida Facility:[facility] Start: 05-26-2024 ambulatory Santos Martinez Facility:[facility] Start: 05-25-2024 End: 05-25-[address] Santos Martinez MD -Laboratory, [place] Work Phone: Start: 05-25-2024 End: 05-25-2024 ambulatory Santos Martinez Facility:[facility] Start: 08-07-2023 End: 08-07-2023 ambulatory [facility] Work Phone: Start: 08-07-2023 End: 08-07-2023 Patient encounter procedure [facility]-Cat Scan, [facility] Work Phone: Start: 04-21-2023 End: 04-21-2023 ambulatory [facility] Work Phone: Start: 04-21-2023 End: 04-21-2023 Patient encounter procedure [facility]Cardiovascula r Services Work Phone: Start: 02-10-2023 End: 02-10-2023 ambulatory [facility] Work Phone: Start: 02-10-2023 End: 02-10-2023 Patient encounter procedure [facility]Cat Scan, [facility] Work Phone: Start: 10-09-2022 End: 10-09-2022 ambulatory [facility] Work Phone: Start: 10-09-2022 End: 10-09-2022 Patient encounter procedure [facility]Laboratory Start: 12-12-2021 End: 12-12-[address] Santos Martinez Work Phone: [facility] Work Phone: Start: 12-12-2021 End: 12-12-[address] Santos Martinez Work Phone: [facility]-Radiology, [place] Start: 12-09-2021 End: 12-09-[address] Santos Martinez Work Phone: [facility] Start: 12-06-2021 End: 12-06-[address] Santos Martinez Work Phone: [facility] Work Phone: Start: 12-06-2021 End: 12-06-[address] Santos Martinez Work Phone: [facility] Start: 09-17-2021 End: 09-17-[address] Santos Martinez Work Phone: [facility] Procedures Date Procedure Procedure Detail Performing Clinician Start: 05-25-2024 Lymphocyte percent differential count Dr. Santos Martinez MD Work Phone: Start: 05-25-2024 Measurement of renal function Dr. Santos Martinez MD Work Phone: Comment on above: GFR Calc Start: 05-25-2024 X-ray of chest, PA a nd lateral views Dr. Santos Martinez MD Work Phone: Start: 08-07-2023 CT of chest without contrast Start: 02-10-2023 CT of chest Start: 12-12-2021 Plain chest X-ray Dr. Radha Martinez Work Phone: Start: 09-23-2016 End: 09-23-2016 Documentation of current medications Mariola Zapata Start: 09-23-2016 End: 09-23-2016 Smoking cessation education Mariola Zapata Start: 09-23-2016 End: 09-23-2016 Follow Up Appt 6 months Luisito Leach Start: 09-23-2016 End: 09-23-2016 MMLuisito Stone MD Start: 09-08-2016 End: 09-22-2016 *Hepatic Function Panel Luisito Leach Start: 09-08-2016 End: 09-22-2016 Lipid panel [AGGREGATE] Luisito Leach Start: 03-25-2016 End: 03-25-2016 Documentation of current medications Fermín Stone MD Start: 03-25-2016 End: 03-25-2016 STEPHANIE Howell PA-C Work Phone: Start: 03-25-2016 End: 03-25-2016 Follow Up Appt 6 months Larisa aguayo PA-C Work Phone: Start: 09-25-2015 End: 03-18-2016 Follow Up Appt 6 months Luisito Leach Start: 09-25-2015 End: 03-18-2016 MMM Fermín Stone MD Start: 08-19-2015 End: 09-07-2015 *Hepatic Function Panel Luisito Leach Start: 08-19-2015 End: 09-07-2015 Lipid panel [AGGREGATE] Luisito Leach Start: 03-22-2015 End: 03-22-2015 Smoking cessation education Fermín Stone MD Start: 03-22-2015 End: 03-22-2015 DIRECTOR ADVANCED Larisa Howell PA-C Work Phone: Start: 03-22-2015 End: 03-22-2015 Electrocardiogram, complete Larisa Howell PA-C Work Phone: Start: 03-22-2015 End: 03-22-2015 Follow Up Appt 6 months Larisa aguayo PA-C Work Phone: Start: 10-18-2014 End: 03-07-2015 Vascular Surgery Fermín Stone MD Start: 09-21-2014 End: 09-22-2014 Documentation of current medications Fermín Stone MD Start: 09-21-2014 End: 09-21-2014 Follow Up Appt 6 months Luisito Leach Start: 09-21-2014 End: 09-21-2014 ERICA Stone MD Start: 09-21-2014 End: 09-27-2014 Nuclear stress test -exercise Fermín Stone MD Start: 09-21-2014 End: 09-22-2014 Smoking cessation education Fermín Stone MD Start: 08-01-2014 End: 08-21-2014 *Hepatic Function Panel Luisito Leach Start: 08-01-2014 End: 08-21-2014 Lipid panel [AGGREGATE] Luisito Leach Start: 02-24-2014 End: 02-24-2014 DIRECTOR ADVANCED Larisa Howell PA-C Work Phone: Start: 02-24-2014 End: 02-24-2014 Follow Up Appt 6 months Larisa aguayo PA-C Work Phone: Start: 01-18-2014 End: 01-31-2014 *Hepatic Function Panel Luisito Leach Start: 01-18-2014 End: 01-31-2014 Lipid panel [AGGREGATE] Luisito Leach Start: 08-12-2013 End: 08-12-2013 Follow Up Appt 6 months Luisito Leach Start: 08-12-2013 End: 08-12-2013 ERICA Stone MD Start: 04-20-2013 End: 08-10-2013 *Hepatic Function Panel Luisito Leach Start: 04-20-2013 End: 08-10-2013 Lipid panel [AGGREGATE] Luisito Leach Start: 12-16-2012 End: 02-24-2014 Arterial exam Larisa Howell PA-C Work Phone: Start: 12-16-2012 End: 02-24-2014 Carotid duplex Larisa Howell PA-C Work Phone: Start: 12-16-2012 End: 02-24-2014 DIRECTOR ADVANCED Larisa Howell PA-C Work Phone: Start: 12-16-2012 End: 02-24-2014 Electrocardiogram, complete Larisa Howell PA-C Work Phone: Start: 12-16-2012 End: 02-24-2014 Follow Up Appt 6 months Larisa aguayo PA-C Work Phone: Start: 10-18-2012 End: 11-15-2012 *Hepatic Function Panel Luisito Leach Start: 10-18-2012 End: 11-15-2012 Lipid panel [AGGREGATE] Luisito Leach Start: 06-16-2012 End: 06-16-2012 *Hepatic Function Panel Luisito Leach Start: 06-16-2012 End: 06-16-2012 Follow Up Appt 6 months Luisito Leach Start: 06-16-2012 End: 06-16-2012 Lipid panel [AGGREGATE] Luisito Leach Start: 06-16-2012 End: 06-16-2012 ERICA Stone MD Start: 04-26-2012 End: 06-16-2012 *Hepatic Function Panel Luisito Leach Start: 04-26-2012 End: 06-16-2012 Lipid panel [AGGREGATE] Luisito Leach Start: 12-10-2011 End: 12-10-2011 Follow Up Appt 6 months Luisito Leach Start: 10-29-2011 End: 06-16-2012 *Hepatic Function Panel Luisito Leach Start: 10-29-2011 End: 06-16-2012 Lipid panel [AGGREGATE] Luisito Leach Start: 05-02-2011 End: 05-02-2011 Follow Up Appt 6 months Luisito Leach Start: 05-14-2006 History of placement of stent for coronary artery disease History of coronary artery stent placement Dr. Fermín Stone MD Comment on above: XAI-EPP-Vjjaza RCA w / 2.5 x 13 mm Cypher Stent and LETITIA-Mid RCA w/ 3.5 x 33 mm Cypher 05/14/2006 Plan of Treatment Date Care Activity Detail Author Start: 09-22-2017 End: 09-30-2016 *Hepatic Function Panel *Hepatic Function Panel [employer] Work Phone: Start: 09-22-2017 End: 09-30-2016 Lipid panel [AGGREGATE] *Lipid Profile CC PCP [facility] Work Phone: Start: 04-07-2017 End: 04-07-2017 Appointment Appointment [facility] Work Phone: Start: 09-23-2016 End: 09-23-2016 Appointment Appointment [facility] Work Phone: Start: 09-23-2016 End: 09-23-2016 Follow Up Appt 6 months Follow Up Appt 6 months [facility] Work Phone: Start: 09-23-2016 End: 09-23-2016 MMM MMM [facility] Work Phone: Start: 09-08-2016 End: 09-22-2016 *Hepatic Function Panel *Hepatic Function Panel [facility] Work Phone: Start: 09-08-2016 End: 09-22-2016 Lipid panel [AGGREGATE] *Lipid Profile CC PCP [facility] Work Phone: Start: 03-25-2016 End: 03-25-2016 DIRECTOR ADVANCED DIRECTOR ADVANCED [facility] Work Phone: Start: 03-25-2016 End: 03-25-2016 Follow Up Appt 6 months Follow Up Appt 6 months [facility] Work Phone: Start: 09-25-2015 End: 03-18-2016 Follow Up Appt 6 months Follow Up Appt 6 months [facility] Work Phone: Start: 09-25-2015 End: 03-18-2016 MMM MMM [facility] Work Phone: Start: 08-19-2015 End: 09-07-2015 *Hepatic Function Panel *Hepatic Function Panel [facility] Work Phone: Start: 08-19-2015 End: 09-07-2015 Lipid panel [AGGREGATE] *Lipid Profile CC PCP [facility] Work Phone: Start: 03-22-2015 End: 03-22-2015 DIRECTOR ADVANCED DIRECTOR ADVANCED [facility] Work Phone: Start: 03-22-2015 End: 03-22-2015 Electrocardiogram, complete EKG (In office) [facility] Work Phone: Start: 03-22-2015 End: 03-22-2015 Follow Up Appt 6 months Follow Up Appt 6 months [facility] Work Phone: Start: 10-18-2014 End: 10-18-2014 Vascular Surgery Vascular Surgery Judd Partida MD, [address], [place] [address], [place], [address] [facility] Work Phone: Start: 09-21-2014 End: 09-21-2014 Follow Up Appt 6 months Follow Up Appt 6 months [facility] Work Phone: Start: 09-21-2014 End: 09-21-2014 MMM MMM [facility] Work Phone: Start: 09-21-2014 End: 09-21-2014 Nuclear stress test -exercise Nuclear stress test -exercise [facility] Work Phone: Start: 08-01-2014 End: 08-21-2014 *Hepatic Function Panel *Hepatic Function Panel [facility] Work Phone: Start: 08-01-2014 End: 08-21-2014 Lipid panel [AGGREGATE] *Lipid Profile CC PCP [facility] Work Phone: Start: 02-24-2014 End: 02-24-2014 DIRECTOR ADVANCED DIRECTOR ADVANCED [facility] Work Phone: Start: 02-24-2014 End: 02-24-2014 Follow Up Appt 6 months Follow Up Appt 6 months [facility] Work Phone: Start: 01-18-2014 End: 01-31-2014 *Hepatic Function Panel *Hepatic Function Panel [facility] Work Phone: Start: 01-18-2014 End: 01-31-2014 Lipid panel [AGGREGATE] *Lipid Profile CC PCP [facility] Work Phone: Start: 08-12-2013 End: 08-12-2013 Follow Up Appt 6 months Follow Up Appt 6 months [facility] Work Phone: Start: 08-12-2013 End: 08-12-2013 MMM MMM [facility] Work Phone: Start: 04-20-2013 End: 08-10-2013 *Hepatic Function Panel *Hepatic Function Panel [facility] Work Phone: Start: 04-20-2013 End: 08-10-2013 Lipid panel [AGGREGATE] *Lipid Profile CC PCP [facility] Work Phone: Start: 12-16-2012 End: 12-17-2012 Arterial exam Arterial exam [facility] Work Phone: Start: 12-16-2012 End: 12-17-2012 Carotid duplex Carotid duplex [facility] Work Phone: Start: 12-16-2012 End: 02-24-2014 DIRECTOR ADVANCED DIRECTOR ADVANCED [facility] Work Phone: Start: 12-16-2012 End: 02-24-2014 Electrocardiogram, complete EKG (In office) [facility] Work Phone: Start: 12-16-2012 End: 02-24-2014 Follow Up Appt 6 months Follow Up Appt 6 months [facility] Work Phone: Start: 10-18-2012 End: 11-15-2012 *Hepatic Function Panel *Hepatic Function Panel [facility] Work Phone: Start: 10-18-2012 End: 11-15-2012 Lipid panel [AGGREGATE] *Lipid Profile [facility] Work Phone: Start: 06-16-2012 End: 06-16-2012 *Hepatic Function Panel *Hepatic Function Panel [facility] Work Phone: Start: 06-16-2012 End: 06-16-2012 Follow Up Appt 6 months Follow Up Appt 6 months [facility] Work Phone: Start: 06-16-2012 End: 06-16-2012 Lipid panel [AGGREGATE] *Lipid Profile [facility] Work Phone: Start: 06-16-2012 End: 06-16-2012 MMM MMM [facility] Work Phone: Start: 04-26-2012 End: 06-16-2012 *Hepatic Function Panel *Hepatic Function Panel [facility] Work Phone: Start: 04-26-2012 End: 06-16-2012 Lipid panel [AGGREGATE] *Lipid Profile [facility] Work Phone: Start: 12-10-2011 End: 12-10-2011 Follow Up Appt 6 months Follow Up Appt 6 months [facility] Work Phone: Start: 10-29-2011 End: 06-16-2012 *Hepatic Function Panel *Hepatic Function Panel [facility] Work Phone: Start: 10-29-2011 End: 06-16-2012 Lipid panel [AGGREGATE] *Lipid Profile [facility] Work Phone: Start: 05-02-2011 End: 05-02-2011 Follow Up Appt 6 months Follow Up Appt 6 months [facility] Work Phone: [place] [facility] W str ess and W radionuclide IV [facility] Patient Education [facility] Work Phone: [facility] Payers Date Payer Category Payer Self-pay [id number] 2023 Unknown [id number] 1999 Unknown [id number] Medicare [id number] Unknown [id number] Unknown [id number] [id number] Unknown [id number] [id number] Unknown [id number] [id number] [id number] Unknown [id number] 2.16.8 [id number] Unknown [id number] 2.16.8 [id number] Unknown [id number] [id number] [id number] Social History Date Type Detail Facility Start: 09-17-2021 End: 10-14-2022 Tobacco smoking status NHIS Unknown if ever smoked [facility] Start: 1955 Sex Assigned At Male [facility] Start: 10-14-2022 Tobacco smoking stat us MIIS Smokes tobacco daily (finding) [facility] Medical Equipment Procedure Code Equipment Code Equipment Origin al Text Equipment Identifier Dates 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,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 [id number] FDA Start: 11-29-2020 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,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 [id number] FDA Start: 11-29-2020 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,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 [id number] FDA Start: 11-29-2020 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,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 [id number] FDA Start: 11-29-2020 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,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 [id number] FDA Start: 11-29-2020 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,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 [id number] FDA Start: 11-29-2020 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,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 [id number] FDA Start: 11-29-2020 MESH,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 [id number] FDA Start: 11-29-2020 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,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 [id number] FDA Start: 11-29-2020 Evaluation note 11-17-2024 Note Date & Type Note Facility 11-17-2024 Evaluation note Diagnosis Onset Date Resolution Essential hypertension chronic November 17, 2024 1:35pm Hyperlipidemia chronic November 17, 2024 1:35pm PVD (peripheral vascular disease) with claudication chronic November 17 1:35pm Smoker chronic November 17 1:35pm History of coronary artery stent placement May 14, 2006 resolved November 17, 2024 1:35pm [facility] Work Phone: Evaluation note 05-14-2006 Note Date & Type Note Facility 05-14-2006 Evaluation note Diagnosis Onset Date Essential hypertension chron ic Hyperlipidemia chronic PVD (peripheral vascular disease) with claudication chronic History of coronary artery stent placement May 14, 2006 resolved [facility] Work Phone: Evaluation note Note Date & Type Note Facility Evaluation note No assessment information availa ble [facility] Work Phone: Reason for referral (narrative) Note Date & Type Note Facility Reason for referral (narrative) No reason for referral information available [facility] Work Phone: Chief Complaint and Reason for Visit Chief Complaint 6 M FU INT LABS Reason for Visit Essential hypertensi on Hyperlipidemia PVD (peripheral vascular disease) with claudication History of coronary artery stent placement Chief Complaint 6 M FU INT LABS PNEUMONIA Reason for Visit Essential hypertensi on Hyperlipidemia PVD (peripheral vascular disease) with claudication History of coronary artery stent placement Chief Complaint E ORDERS Chief Complaint Personal history of nicotine dependence Chief Complaint Personal history of nicotine dependence Atherosclerosis of [place] arteries of extremities Chief Complaint Atherosclerosis of n ative arteries of extremities PPULMONARY NODULE Chief Complaint Admit Date SOB, COUGH, DIARRHEA May 25, 2024 3:34pm BLE ATHEROSCLEROSIS, CAD, HX [place] August 18, 2024 7:50am Chief Complaint Admit Date BLE ATHEROSCLEROSIS, CAD, HX [place] August 18, 2024 7:50am 1 Y FU November 17, 2024 1:35 pm Reason for Visit Admit Date Essential hypertension November 17, 2024 1 :35pm Hyperlipidemia November 17, 2024 1:35 pm PVD (peripheral vascular disease) with c laudication November 17, 2024 1:35pm Smoker November 17, 2024 1:35 pm History of coronary artery stent placeme nt November 17, 2024 1:35pm Advance Directives No Advanced Directives Records Found Advance Directive Response Recorded Date/ Time Living Will No November 27 9:43am Power of Currency Exchange Specialist No November 27 9:43am Advance Directive Response Recorded Date/ Time Living Will No November 27 8:43am Power of Currency Exchange Specialist No November 27 8:43am Advance Directive Response Recorded Date/ Time Living Will No November 27 9:43am Do you have a Healthcare Power of Currency Exchange Specialist? No November 27, 2020 9:43am Summary Purpose Family History No Family History Records Found Additional Source Comments Goals (unrecognized section and content) Goals may be documented in a n alternate sectionGoals may be documented in an alternate sectionGoals may be documented in an alternate sectionGoals may be documented in an alternate sectionGoals may be documented in an alternate sectionGoals may be documented in an alternate sectionGoals may be documented in an alternate sectionGoals may be documented in an alternate sectionGoals may be documented in an alternate section Care Teams (unrecognized sec tion and content) Team Status: Active Member Role Status Dates Dr. Santos Martinez MD Family Provider Active Dr. Santos Martinez MD Primary Care Provider Active Team Status: Inactive Member Role Status Dates Dr. Santos Martinez MD Primary Care Provider Active Dr. Fermín Stone MD Attending Provider, Referring Pro vider Active Team Status: Inactive Member Role Status Dates Dr. Santos Martinez MD Primary Care Provider Active Dr. Momo Peters MD Attending Provider, Referrin g Provider Active Team Status: Inactive Member Role Status Dates Dr. Santos Martinez MD Primary Care Provider Active Dr. Judd Partida MD Attending Provider, Referring Provider Active Team Status: Active Member Role Status Dates Dr. Santos Martinez MD Primary Care Provider Active Team Status: Inactive Member Role Status Dates Dr. Santos Martinez MD Primary Care Provider Active Start: May 25, 2024 End: May 25, 2024 Dr. Santos Martinez MD Attending Provider Active Start: May 25, 2024 End: May 25, 2024 Dr. Santos Martinez MD Referring Provider Active Start: May 25, 2024 End: May 25, 2024 Team Status: Inactive Member Role Status Dates Dr. Santos Martinez MD Primary Care Provider Active Start: August 18, 2024 End: August 18, 2024 Dr. Judd Partida MD Attending Provider Active Start: August 18, 2024 End: August 18, 2024 Dr. Judd Partida MD Referring Provider Active Start: August 18, 2024 End: August 18, 2024 Team Status: Active Member Role/Relationship Status Dates Dr. Santos Martinez MD Primary Care Provider Active Team Status: Inactive Member Role/Relationship Status Dates Dr. Santos Martinez MD Primary Care Provider Active Start: August 18, 2024 End: August 18, 2024 Dr. Judd Partida MD Attending Provider Active Start: August 18, 2024 End: August 18, 2024 Dr. Judd Partida MD Referring Provider Active Start: August 18, 2024 End: August 18, 2024 Team Status: Inactive Member Role/Relationship Status Dates Dr. Santos Martinez MD Primary Care Provider Active Start: November 17, 2024 End: November 17, 2024 Dr. Santos Martinez MD Referring Provider Active Start: November 17, 2024 End: November 17, 2024 Dr. Fermín Stone MD Attending Provider Active S tart: November 17, 2024 End: November 17, 2024 Team Status: Inactive Member Role/Relationship Status Dates Dr. Santos Martinez MD Primary Care Provider Active Start: November 17, 2024 End: November 17, 2024 Dr. Fermín Stone MD Attending Provider Active S tart: November 17, 2024 End: November 17, 2024 Dr. Fermín Stone MD Referring Provider Active S tart: November 17, 2024 End: November 17, 2024 (unrecognized sect ion and content) No Status Records Found INFORMATION SOURCE (unrecogn ized section and content) DATE CREATED AUTHOR 12/15/2024 [facility] FOR RECORDS PERTAINING TO PATIENTS WHO ARE OR HAVE BEEN ENROLLED IN A CHEMICAL DEPENDENCY/SUBSTANCEABUSE PROGRAM, SOME INFORMATION MAY BE OMITTED. This clinical summary was aggregated from multiple sources. Caution should be exercised in using it in the provision of clinical care. This summary normalizes information from multiple sources, and as a consequence, information in this document may materially change the coding, format and clinical context of patient data. In addition, data may be omitted in some cases. CLINICAL DECISIONS SHOULD BE BASED ON THE PRIMARY CLINICAL RECORDS. [employer] [facility] provides no warranty or guarantee of the accuracy or completeness of information in this document.
--- NOTE | 2025-01-11 16:44 | STRESSREP ---
Stress Test Report Pharmacologic myocardial perfusion stress test. 69-year-old man with a history of coronary disease. Resting EKG demonstrates normal sinus rhythm with a rate of 67 bpm. Resting blood pressure is 112/60 mmHg. 0.4 mg of regadenoson was infused per usual protocol followed by rapid intravenous saline flush injection. Continuous EKG monitoring was performed. The maximum heart rate was 92 bpm which was 61% of max impacted heart rate the maximum workload was 1 metabolic equivalent. At rest there were no ST or T wave changes noted to suggest ischemia and at peak infusion nonspecific ST changes were noted which did not meet the criteria for ischemia. No clinical angina is noted. The final blood pressure was 130/70 mmHg. Myocardial perfusion protocol. 11 mCi of technetium 99m sestamibi was injected at rest. 0.4 mg of regadenoson was infused per usual protocol. At peak infusion 35.3 mCi of technetium 99m sestamibi was injected stress images were obtained stress and rest images were reconstructed and compared in the short axis vertical long and horizontal long axis. Gated images were also obtained. Perfusion SPECT analysis: Review of the stress images demonstrate normal uptake of tracer noted in all areas of the myocardium. There was a large defect noted involving the inferior, inferoseptal mid inferior and inferior lateral wall. The resting images demonstrate a similar pattern suggestive of a previous extensive inferior infarct. Minimal naomi-infarct ischemia only is noted. Gated SPECT analysis: The gated ejection fraction is 41%. Conclusion: Abnormal pharmacologic myocardial perfusion stress test. 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
== END | disposition home or self-care (01) ==
LOC: CVS 06:50
PROVIDERS: PCP Family Medicine; Referring Provider Internal Medicine Cardiovascular Disease; Visit Provider Internal Medicine Cardiovascular Disease
DX: I25.10 Atherosclerotic heart disease of native coronary artery without angina pectoris (principal); Z95.5 Presence of coronary angioplasty implant and graft
CPT/HCPCS: 78452; 93017; 93306; A9500; Q9957; A4216; C8929; J2785

== ENCOUNTER → 2025-02-13 | Outpatient (CLI) | payer MEDICARE, OTHER, SELFPAY ==
--- NOTE | 2025-02-13 14:48 | CT_ITS ---
PROCEDURE: LOW DOSE CT LUNG SCREENING 02/13/2025 REASON FOR EXAM: HX NICOTINE DEPENDENCE Patient has smoked 1-1/2 pack per day for 50 years. COPD. TECHNIQUE: Procedure Code: [id number] Modality: CT Procedure: LOW DOSE CT LUNG SCREENING Coronal and Sagittal reconstruction series were provided. One or more dose reduction techniques were used (e.g., Automated exposure control, adjustment of the mA and/or kV according to patient size, use of iterative reconstruction technique). REFERENCE LINK: [employer] Lung-RADS RADIATION DOSE SUMMARY: CTDlvol: 2.01 mGy DLP: 73.49 mGycm COMPARISON: Prior study dated February 10, 2023. FINDINGS: PULMONARY NODULES: (Only nodules >3mm are reported) Nodules described below are on series 1 unless otherwise specified. Pulmonary Nodules: Essentially stable 8 mm partially calcified nodule in the posterior medial segment of the left lower lobe suggestive of either a partially calcified granuloma or possible small hamartoma. Hardware:None Lymph Nodes:Small benign-appearing mediastinal lymph nodes. Heart and Vasculature:The heart is nonenlarged.Atherosclerotic calcifications of the thoracic aorta. Thoracic aorta and pulmonary arteries have normal contours; noncontrast technique limits evaluation. Coronary Artery Calcifications: Present Lungs and Airways: Mild emphysematous changes are present. Pleura:No pleural effusion. Upper Abdomen:Unremarkable Bones:Degenerative changes of the thoracic spine. CT/Low Dose CT Lung Screening IMPRESSION: Stable examination. Coronary artery calcification (CAC) is is present Lung-RADS Category: 2 BENIGN (BASED ON IMAGING FEATURES OR INDOLENT BEHAVIOR). RECOMMEND 12-MONTH SCREENING LDCT. Other Significant Findings: Reading Location: [facility]
== END | disposition home or self-care (01) ==
LOC: CT 14:47
PROVIDERS: PCP Family Medicine; Referring Provider Internal Medicine Pulmonary Disease; Visit Provider Internal Medicine Pulmonary Disease
DX: Z87.891 Personal history of nicotine dependence (principal)
CPT/HCPCS: 71271